=== PATIENT | male | born 1940 | race Caucasian/White ===

== ENCOUNTER 2016-07-03 23:38 | Inpatient (IN) | payer MEDICARE, MEDICAID ==
[~2016-07-03] VITALS: Ht 185.4 cm; Wt 83.4 kg
--- NOTE | 2016-07-04 00:32 | RADRPT ---
PROCEDURE: XR Chest. CLINICAL INDICATION: Sepsis TECHNIQUE: AP Portable chest. COMPARISON: No pertinent prior examinations were submitted for comparison. FINDINGS: The patient is rotated towards the right. There is mild to moderate cardiomegaly. There is mild pu lmonary vascular congestion. The osseous structures are unremarkable. IMPRESSION: Mild pulmonary vascular congestion. RPTAT: HIKT .Farooq Orta MD, MD Date Time Electronically viewed and signed by .Farooq Orta MD, on 07/04/2016 00:32 .T/
[2016-07-04 00:40] LABS: AADO2 Arterial 203.6 mmHg (7.0-24.0); Allen Test ACCEPTAB; Arterial Base Excess 3.1 mmol/L (-3.0-3); Arterial COHb 0 % (0.0-3.0); Arterial Fraction of Oxyhgb 98.1 % (93.0-99.0); Arterial HCO3 25.7 mmol/L (22.0-26.0); Arterial MetHb 0.3 % (0.0-1.5); MODE VENT-AC
[2016-07-04] MEDS ORDERED: ACETAMINOPHEN 650MG/20.3ML CUP NGT STA (00:55)
[2016-07-04 01:03] LABS: BASOPHILS % 0.2 % (0.0-2.0); EOSINOPHILS # 0.2 10^3/ul (0.0-0.5); EOSINOPHILS % 1.8 % (0.0-7.0); HEMATOCRIT 36.2 % (42.0-52.0); HEMOGLOBIN 12.5 g/dl (14.0-18.0); LYMPHOCYTES # 0.4 10^3/ul (0.8-2.9); LYMPHOCYTES % 3.4 % (15.0-51.0); MEAN CORPUSCULAR HEMOGLOBIN 32.9 pg (29.0-33.0); MEAN CORPUSCULAR HGB CONC 34.5 g/dl (32.0-37.0); MEAN CORPUSCULAR VOLUME 95.5 fl (82.0-101.0); MEAN PLATELET VOLUME 9.3 fl (7.4-10.4); MONOCYTE # 0.9 10^3/ul (0.3-0.9); MONOCYTES % 7.5 % (0.0-11.0); NEUTROPHIL # 10.8 10^3/ul (1.6-7.5); NEUTROPHILS % 87.1 % (39.0-77.0); PLATELET COUNT 208 10^3/UL (140-440); RED BLOOD COUNT 3.79 10^6/ul (4.70-6.10); RED CELL DISTRIBUTION WIDTH 13.1 % (11.5-14.5); UNCORRECTED WBC 12.4 10^3/ul (4.8-10.8); WHITE BLOOD COUNT 12.4 10^3/ul (4.8-10.8)
[2016-07-04 01:08] LABS: INR 1.62; PROTIME 19.4 Sec (12.2-14.2); PT RATIO 1.5
[2016-07-04 01:09] LABS: ALBUMIN 3.2 g/dl (3.3-4.9); PARTIAL THROMBOPLASTIN TIME 32.7 Sec (25.0-35.0); POTASSIUM 4.2 mmol/L (3.5-5.1)
[2016-07-04 01:11] LABS: CREATININE 0.71 mg/dl (0.61-1.24)
[2016-07-04 01:12] LABS: ALBUMIN/GLOBULIN RATIO 0.88; BILIRUBIN,INDIRECT 0.4 mg/dl (0-1.1); BILIRUBIN,TOTAL 0.4 mg/dl (0.2-1.3); CALCIUM 8.3 mg/dl (8.4-10.2); TOTAL PROTEIN 6.8 g/dl (6.1-8.1)
[2016-07-04 01:24] LABS: CONDITION 1; TROPONIN-I 0.025 ng/ml (0.00-0.12)
[2016-07-04 01:58] LABS: ADD UMIC YES; URINE BILIRUBIN (Dip) NEGATIVE (NEGATIVE); URINE BLOOD (Dip) 2+ (NEGATIVE); URINE COLOR DK. YELLOW (YELLOW); URINE GLUCOSE (Dip) NEGATIVE (NEGATIVE); URINE KETONES (Dip) NEGATIVE (NEGATIVE); URINE LEUKOCYTE ESTERASE (Dip) NEGATIVE (NEGATIVE); URINE NITRITE (Dip) NEGATIVE (NEGATIVE); URINE TOTAL PROTEIN (Dip) 2+ (NEGATIVE); URINE UROBILINOGEN (Dip) 1.0 E.U./dL (0.1-1.0)
--- NOTE | 2016-07-04 02:14 | ERA ---
ER Documentation Chief Complaint Date/Time DATE: 07/04/16 TIME: 02:13 Chief Complaint SNF staff unable to suction properly; SOB. HPI This is a 75-year-old male sent in by a [place] [facility] facility secondary to worsening shortness of breath on a tracheostomy patient. There were unable to suction the patient to comfort. Patient's history is limited secondary to baseline mental status and baseline medical condition. History is per EMS run sheet and [facility] transfer sheet. ROS All systems reviewed and are negative except as per history of present illness. Allergies Allergies: Coded Allergies: No Known Allergy (Unverified , 07/04/16) PMhx/Soc History of Surgery: Yes (G tube, tracheostomy) Anesthesia Reaction: No Hx Neurological Disorder: Yes (CVA with R hemiparesis) Hx Respiratory Disorders: Yes (respiratory failure; chronic trache to vent) Hx Cardiac Disorders: Yes (HTN, hyperlipids, AF) Hx Psychiatric Problems: No Hx Miscellaneous Medical Probl: Yes (dysphagia, G tube, UTI) Hx Alcohol Use: No Hx Substance Use: No Hx Tobacco Use: No Smoking Status: Former smoker Physical Exam Vitals Vital Signs Date Time Temp Pulse Resp B/P Pulse Ox O2 Delivery O2 Flow Rate FiO2 07/04/16 02:00 97.9 85 15 91/60 99 Mechanical Ventilator 07/04/16 01:00 86 15 98 50 07/04/16 00:40 101.7 83 23 101/62 07/03/16 23:45 99 24 98 50 Physical Exam Const: [] Head: Atraumatic Eyes: Normal Conjunctiva ENT: Normal External Ears, Nose and Mouth. Neck: Full range of motion..~ No meningismus. Resp: Clear to auscultation bilaterally Cardio: Regular rate and rhythm, no murmurs Abd: Soft, non tender, non distended. Normal bowel sounds Skin: No petechiae or rashes Back: No midline or flank tenderness Ext: No cyanosis, or edema Neur: Awake and alert Psych: Normal Mood and Affect Result Diagram: 07/04/16 0020 07/04/16 0020 Results 24 hrs Laboratory Tests Test 07/04/16 00:01 07/04/16 00:20 07/04/16 01:30 Arterial Blood HCO3 25.7mmol/L Arterial Blood Base Excess 3.1mmol/L Arterial Blood Oxygen Saturation 98.4mmHG Jasvir Test ACCEPTAB Arterial Blood Gas Puncture Site Left Radial Arterial Blood Carboxyhemoglobin 0% Arterial Blood Date Drawn 07/04/2016 12:35:00 AM Arterial Blood Methemoglobin 0.3% Arterial Blood pCO2 (Temp correct) 33.0mmhg Arterial Blood pH (Temp corrected) 7.510 Arterial Blood pO2 (Temp corrected) 115.8mmHG Blood Gas A-a O2 Differential 203.6mmHg Blood Gas Actual Respiration Rate 20 Blood Gas Inspiratory Pressure 38.0 Blood Gas Low PEEP Setting 5.0cmH2O Blood Gas Modality VENT-AC Blood Gas Notified Time 07/04/2016 12:40:28 AM Blood Gas Notified Whom JMD Blood Gas Respiration Rate 14.0 Blood Gas Specimen Source Blood arterial Blood Gas Temperature 37.0C Blood Gas Tidal Volume 550.0mL FiO2 50.0% Oxyhemoglobin Percent 98.1% Total Hemoglobin 13.0g/dl Activated Partial Thromboplast Time 32.7Sec Alanine Aminotransferase (ALT/SGPT) 28IU/L Albumin 3.2g/dl Albumin/Globulin Ratio 0.88 Alkaline Phosphatase 70IU/L Anion Gap 14 Aspartate Amino Transf (AST/SGOT) 19IU/L Basophils # 0.010^3/ul Basophils % 0.2% Blood Urea Nitrogen 23mg/dl Calcium Level 8.3mg/dl Carbon Dioxide Level 30mmol/L Chloride Level 95mmol/L Creatinine 0.71mg/dl Direct Bilirubin 0.00mg/dl Eosinophils # 0.210^3/ul Eosinophils % 1.8% Globulin 3.60g/dl Glucose Level 144mg/dl Hematocrit 36.2% Hemoglobin 12.5g/dl INR International Normalized Ratio 1.62 Indirect Bilirubin 0.4mg/dl Lactic Acid Level 1.2mmol/L Lymphocytes # 0.410^3/ul Lymphocytes % 3.4% Mean Corpuscular Hemoglobin 32.9pg Mean Corpuscular Hemoglobin Concent 34.5g/dl Mean Corpuscular Volume 95.5fl Mean Platelet Volume 9.3fl Monocytes # 0.910^3/ul Monocytes % 7.5% Neutrophils # 10.810^3/ul Neutrophils % 87.1% Nucleated Red Blood Cells # 0.010^3/ul Nucleated Red Blood Cells % 0.0/100WBC Platelet Count 53959^3/UL Potassium Level 4.2mmol/L Prothrombin Time 19.4Sec Prothrombin Time Ratio 1.5 Red Blood Count 3.7910^6/ul Red Cell Distribution Width 13.1% Sodium Level 135mmol/L Total Bilirubin 0.4mg/dl Total Protein 6.8g/dl Troponin I 0.025ng/ml White Blood Count 12.410^3/ul Urine Bilirubin NEGATIVE Urine Clarity SL HAZY Urine Color DK. YELLOW Urine Glucose NEGATIVE% Urine Hemoglobin 2+ Urine Ketones NEGATIVE Urine Leukocyte Esterase NEGATIVE Urine Microscopic RBC Pending Urine Microscopic WBC Pending Urine Nitrite NEGATIVE Urine Specific [place] >=1.030 Urine Total Protein 2+ Urine Urobilinogen 1.0 E.U./dL Urine pH 5.5 Current Medications Medications (Trade) Dose Ordered Sig/Thor Route PRN Reason Start Time Stop Time Status Last Admin Dose Admin Acetaminophen (Tylenol Liquid) 650 mg ONCE STAT NGT 07/04/16 00:55 07/04/16 00:56 DC 07/04/16 01:23 Procedures/MDM EKG: Rate/Rhythm: Normal Sinus Rhythm QRS, ST, T-waves: No changes consistent w/ acute ischemia Impression: No evidence of ischemia or arrhythmia Chest X-ray 1V Interpreted by me: Soft Tissue: No acute abnormalities Bones: No acute abnormalities Mediastinum/Cardiac Silhouette/Lungs: Increased interstitial fluid markings , pulmonary vascular congestion. Impression: CHF Patient's heart failure symptoms is concerning for acute decompensation and will require inpatient workup and monitoring. Further w/u for ischemia, arrhythmia, PE or dissection will be deferred to the inpatient team. Accepting Care Team: Current data and ongoing care discussed. Time: 2:30 AM Primary Provider: Hospitalist Consulting: [XOXOXO] Outstanding Data: none Departure Diagnosis: Primary Impression: Shortness of breath Additional Impressions: CHF (congestive heart failure) Qualified Code: I50.9 - Congestive heart failure, unspecified congestive heart failure chronicity, unspecified congestive heart failure type Tracheostomy dependent Condition: Serious OTIS BUNCH Jul 04, 2016 02:14
[2016-07-04 02:25] LABS: BACTERIA,URINE FEW; SQUAMOUS EPITHELIAL CELL,UR FEW
[2016-07-04 02:26] LABS: MUCUS,URINE FEW
[2016-07-04] MEDS ORDERED: CALC500T11 GTB (07:31)
[2016-07-04] MEDS ORDERED: ALBU2.5V3 NEB (07:31)
[2016-07-04] MEDS ORDERED: CHLO473M4 MM (07:32)
[2016-07-04] MEDS ORDERED: DOCU-144 GTB (07:32)
[2016-07-04] MEDS ORDERED: CARV12.598 GTB (07:33)
[2016-07-04] MEDS ORDERED: CRAN425C GTB (07:33)
[2016-07-04] MEDS ORDERED: DULR PR (07:34)
[2016-07-04] MEDS ORDERED: OMEG500C3 GTB (08:22)
[2016-07-04] MEDS ORDERED: FLEETOIL PR (08:23)
[2016-07-04] MEDS ORDERED: ATOR10TA65 GTB (08:38)
[2016-07-04] MEDS ORDERED: MAGN400O4 GTB (08:39)
[2016-07-04] MEDS ORDERED: MAGN400T28 GTB (08:39)
[2016-07-04] MEDS ORDERED: AMLO5TAB4 GTB (08:40)
[2016-07-04] MEDS ORDERED: FAMO-18 GTB (08:40)
[2016-07-04] MEDS ORDERED: SCOP1PAT TD (08:41)
[2016-07-04] MEDS ORDERED: ACET325T45 GTB (08:42)
[2016-07-04] MEDS ORDERED: RIVA20TA GTB (08:43)
[2016-07-04 10:52] VITALS: TEMP 98.3
[2016-07-04] MEDS ORDERED: ALBUTEROL 0.083% (NEB) 2.5 MG/3 ML AMP NEB PRN (13:30)
[2016-07-04] MEDS ORDERED: MINERAL OIL 133 ML ENEMA PR PRN (13:30)
[2016-07-04] MEDS ORDERED: BISACODYL 10 MG SUPP PR PRN (13:30)
[2016-07-04] MEDS ORDERED: FUROSEMIDE 20 MG INJ IV ONE (13:30)
[2016-07-04] MEDS: LEVOFLOXACIN 500MG/D5W (PMX) 100 ML IVPB SCH (13:50)
--- NOTE | 2016-07-04 15:03 | CONS ---
DATE OF ADMISSION: 07/03/2016 DATE OF CONSULTATION: 07/04/2016 CARDIAC CONSULTATION REASON FOR CONSULTATION: Atrial fibrillation. REQUESTING PHYSICIAN: Dr. Landers from the hospitalist service. HISTORY OF PRESENT ILLNESS: Mr. Collado is a 75-year-old male with a history of chronic resp iratory failure status post tracheostomy and dysphagia status post G-tube, atrial fibrillation on Xa relto, CVA with left-sided MCA, stroke and subsequent hemiplegia, aphasia who presented from chronic care facility with worsening respiratory status use of accessory muscles. Upon arrival, temperatur e of 101.7, blood pressure 101/62, pulse 83, respiratory rate 23, saturating 98%, FiO2 of 50%. The patient's labs with an INR of 1.62, sodium 135, potassium 4.2, creatinine 0.7, BUN 23, AST 19, ALT 2 8. Troponin negative. White blood cell count 12.4, hemoglobin 12.5, platelet count of 208. ABG re vealing a pH of 7.510, a pO2 of 115, a pCO2 of 33, UA borderline. The patient's chest x-ray reveale d mild pulmonary vascular congestion. The patient's electrocardiogram revealed a rhythm most consis tent with atrial fibrillation, rate of 97, right axis deviation, poor R-wave progression across the leads with a concern for possible anterior anterolateral DE with intraventricular conduction d elay and secondary repolarization abnormalities. The patient has been treated with Tylenol for feve r and now awaits admit to the floor. PAST MEDICAL HISTORY: As above in HPI. MEDICATIONS CURRENTLY IN HOSPITAL: 1. Norvasc 5 mg daily. 2. Mag oxide. 3. Scopolamine patch. 4. Lipitor 2.5 mg at bedtime. 5. Calcium carbonate. 6. Carvedilol 12.5 mg p.o. b.i.d. 7. Peridex. 8. Colace 100 mg at bedtime. 9. Xarelto 20 mg daily. 10. Tylenol p.r.n. 11. Albuterol p.r.n. 12. Mineral oil p.r.n. 13. Levofloxacin p.r.n. ALLERGIES: PENICILLIN. SOCIAL HISTORY: No tobacco, ETOH, or illicit drug use. FAMILY HISTORY: No history of sudden cardiac or early CAD. REVIEW OF SYSTEMS: As above in HPI. CONSTITUTIONAL: No fevers, chills. Positive fevers. PULMONARY: Respiratory failure, chronic, status post tracheostomy. GASTROINTESTINAL: Dysphagia, status post G-tube. GENITOURINARY: No hematuria. MUSCULOSKELETAL: Degenerative joint disease. PSYCHIATRIC: No documented psych history. NEUROLOGIC: History of cerebrovascular accident with hemiplegia and aphasia. PHYSICAL EXAMINATION: VITAL SIGNS: Temperature of 97.9, blood pressure most recently 116/76, pulse 75, respiratory rate 1 5, saturating 99%, FIO2 50%. GENERAL: The patient is sleeping, arousable, appears confused, encephalopathic. NECK: Tracheostomy in place. CHEST: Upper airway transmitted rhonchorous sounds. HEART: Irregularly irregular 1/6 systolic murmur, nondisplaced PMI. ABDOMEN: Positive bowel sounds, soft, positive G-tube. EXTREMITIES: Trace edema, 1+ pulses bilaterally, posterior tibial. LABORATORY DATA: As above in HPI. No further labs for my review at this time. IMAGING STUDIES: As above in HPI. No further imaging studies for my review at this time. ECG: As above in HPI. No further electrocardiograms for my review at this time. IMPRESSION: 1. Atrial fibrillation, currently rate controlled on Xarelto. 2. Congestive heart failure by chest x-ray, question systolic versus diastolic, but acute given her presentation. 3. Hypotension now improved currently. 4. Abnormal electrocardiogram, assess for acute coronary syndrome. 5. Respiratory failure, chronic, status post trach. 6. Dysphagia, status post G-tube. 7. Cough assess for upper respiratory infection. 8. Fevers. 9. Coagulopathy secondary to Xarelto. 10. Mild anemia. RECOMMENDATIONS: 1. At this time, would admit patient to telemetry monitoring to follow rhythm and rate control clos ayesha. 2. Continue the patient's current carvedilol for control of blood pressure and Norvasc. 3. Continue the patient's Xarelto for prevention of thromboembolic complications in the setting of atrial fibrillation, prior cerebrovascular accident. 4. Continue the patient's antibiotics and follow up all culture data. 5. Continue the patient's statin and adjust it according to a fasting lipid panel that is to be jordyn cked. 6. Check a 2-D echo to further assess patient's ejection fraction, wall motion, rule any major valv e abnormalities, and will complete a rule out for myocardial infarction to ensure the patient's EKG abnormalities are chronic in nature and not due to any recent acute coronary syndromes. Thank you for allowing me to take part in the care of this patient. I will continue to follow very closely with you with further recommendations to be made as the patient progresses through his [facility] clinical course. Dictated By: GERARDO STANLEY/MARLY Conf#: [id number] DID#: [id number] CC: ELISEO CHUN MD;*End*
--- NOTE | 2016-07-04 16:07 | HP ---
DATE OF ADMISSION: 07/03/2016 CHIEF COMPLAINT: Respiratory failure, fever. HISTORY OF PRESENT ILLNESS: This is a 75-year-old male well known to me with a past medical history of CVA with right-sided hemiparesis, history of dementia, history of hypertension, history of hyper lipidemia, history of chronic atrial fibrillation, history of dysphagia status post PEG who presents to [facility] with shortness of breath and fever. The patient has been a chronic resident of [facility] for over 2 years. The patient, during that time, has been stable on t edelmira mask. The patient was in his normal state of health until late yesterday when the patient star adilene to have shortness of breath, tachypnea. The patient, at his skilled nurse facility, underwent a ggressive suctioning without any significant improvement. As a result of worsening shortness of karlee ath, the patient was transferred to the [facility] Emergency Room for evaluation. On admission, the patient was noted to be hypotensive with systolic pressures in the 90s as well as febrile with a temperature of 101.7. In the emergency room, the patient was given Tylenol and was g iven IV hydration. The patient's laboratory data drawn showed elevated white count of 12,000. The patient had a chest x-ray which showed pulmonary congestion. The patient was placed on the vent and has since been clinically stable. There have been no reports of hemoptysis, hematemesis, or hemato chezia. PAST MEDICAL HISTORY: As stated above, history of chronic respiratory failure, history of a CVA wit h right-sided hemiparesis, history of dementia, history of hypertension, dyslipidemia, AFib, history of UTI, and history of debility. PAST SURGICAL HISTORY: Status post trach, status post PEG. ALLERGIES: THE PATIENT IS ALLERGIC TO PENICILLIN. FAMILY HISTORY: No family history of kidney disease or heart disease. MEDICATIONS: The patient's medications have been reviewed and reconciled. SOCIAL HISTORY: Lives at skilled nurse facility. REVIEW OF SYSTEMS: A 14-point review of systems was conducted. Pertinent positives stated in HPI, otherwise negative. Please note review of systems was obtained by speaking to his at bedside a nd reviewing medical records. PHYSICAL EXAMINATION: VITAL SIGNS: Blood pressure is 116/76, respirations 15, pulse 75, temperature 98.3. HEENT: Head is normocephalic. Pupils are reactive to light. NECK: Shows trach. HEART: Irregularly irregular. LUNGS: Show diminished breath sounds at base. Positive rhonchi. ABDOMEN: Soft, nontender to palpation, no rebound or guarding. Positive PEG. EXTREMITIES: Negative for clubbing, cyanosis, no edema. DERMATOLOGIC: No rashes. MUSCULOSKELETAL: No joint effusions. No obvious wounds. NEUROLOGIC: Limited exam. The patient has right-sided weakness. LABORATORY DATA: Shows a sodium 135, potassium 4.2, chloride 95, BUN 23, creatinine 0.71. Lactic a gely 1.8. White count 12.4, hemoglobin 12.5, hematocrit 36.2, platelet count is 208. Chest x-ray sh ows vascular pulmonary congestion. ASSESSMENT AND PLAN: This is a 75-year-old male who presents with 1. Acute hypoxemic respiratory failure. Etiology is secondary to possible bronchitis, CHF exacerba tion? The patient was placed back on the vent. Vent settings have been reviewed. Plan at this poi nt is to continue medical management. We will start the patient on empiric Levaquin for possible br onchitis. We will continue nebulizer therapy. We will continue current vent settings. We will guillermina ce a pulmonary consult with Dr. Pulido for evaluation and monitor. 2. Fever, systemic inflammatory response syndrome, possible acute bronchitis. The patient was note d to have elevated white count, to be febrile, and to have a productive cough. Plan at this point i s to start the patient on Levaquin 500 mg IV daily. We will check blood cultures and procalcitonin level, check a urine culture. We will check sputum cultures. We will follow up with Infectious Dis ease, Dr. Varghese, for any further evaluations and monitor. 3. Chronic atrial fibrillation. The patient is currently rate controlled. We will continue medica l management. Continue Coreg, continue Xarelto. Cardiology consult was placed. We will follow up with recommendations. 4. Acute encephalopathy and chronic dementia. Etiology is likely toxic metabolic. We will treat u nderlying infection as stated above. Continue to monitor vital signs closely. If there is any sign ificant change, we will get a CT scan of the head. 5. Dysphagia status post percutaneous endoscopic gastrostomy. The patient will be resumed on tube feeding. 6. Cerebrovascular accident with right-sided hemiparesis. We will continue current medical managem ent. Continue statin therapy. Continue Xarelto. Continue low-dose aspirin. 7. Dyslipidemia. Continue fish oil, statin therapy. 8. Hypertension. The patient is now hypotensive. We will place parameters on blood pressure medic ations. The patient is status post IV fluids and monitor. 9. Possible congestive heart failure exacerbation. The patient's chest x-ray shows pulmonary vascu lar congestion. We will continue to monitor closely. Follow up with Cardiology for recommendations . 10. Anemia, likely of chronic disease. Monitor hemoglobin levels. 11. Gastrointestinal and deep venous thrombosis prophylaxis. Continue proton pump inhibitor and Xa relto. Please note I spent over 30 minutes of face to face with the patient and patient's at bedside d iscussing code status. The patient is a FULL CODE. Dictated By: RACHEAL BELTRÁN/MARLY Conf#: [id number] DID#: [id number]
--- NOTE | 2016-07-04 17:42 | CONS ---
DATE OF ADMISSION: 07/03/2016 DATE OF CONSULTATION: 07/04/2016 TYPE OF CONSULTATION: Infectious Disease. REASON FOR CONSULTATION: Antibiotic management. HISTORY OF PRESENT ILLNESS: The patient is a 75-year-old male who comes in with respiratory failure and fever. His past problems include: 1. History of CVA with right-sided hemiparesis. 2. History of dementia. 3. Hypertension. 4. Hyperlipidemia. 5. Chronic atrial fibrillation. 6. Dysphagia, status post G-tube placement. The patient presents to [facility] with shortness of breath and fever. He is a chronic res ident [facility] for over 2 years. The patient has been stable on a trach mask. He was st able until late afternoon yesterday, when he began to develop shortness of breath and tachypnea. He underwent aggressive suctioning without any significant improvement. He developed worsening shortn ess of breath and was transferred to [facility] for evaluation. He was hypotensive with a blood pressure in the 90s as well as temperature of 101.7. His white count was 12.4, H and H of 12. 5 and 36.2, platelet count 208,000. BUN and creatinine were 23 over 0.7. Bilirubin 0.4, AST 19, AL T 28. Chest x-ray showed mild to moderate cardiomegaly, mild pulmonary vascular congestion. The pa tient is status post trach, status post G-tube. HE IS ALSO ALLERGIC TO PENICILLIN. FAMILY HISTORY: Noncontributory. SOCIAL HISTORY: He lives in a long-term facility. HABITS: He does not smoke, drink or abuse drugs at this point. MEDICATIONS: Per chart. REVIEW OF SYSTEMS: Noncontributory. PHYSICAL EXAMINATION: GENERAL: The patient is an elderly-appearing 75-year-old male who is confused, demented, in no acut e distress. VITAL SIGNS: Stable. SKIN: Without general rash. HEENT: Within normal limits. NECK: With tracheostomy. HEART: Irregularly irregular rhythm. CHEST: Decreased breath sounds at the bases with scattered rhonchi. ABDOMEN: Soft, nontender without organosplenomegaly or masses. He has a G-tube. EXTREMITIES: Without cyanosis, clubbing or edema. RECTAL AND GENITAL: Deferred. NEUROLOGIC: The patient has right-sided weakness secondary to previous stroke. IMPRESSION AND PLAN: The patient has acute hypoxemic respiratory failure possibly related to bronch itis or congestive heart failure. He was started on empiric Levaquin. Will do blood cultures and u rine. A procalcitonin level was ordered. He has acute on chronic encephalopathy and dementia. I w ill dictate my findings to Dr. Lal and to Dr. Whitlock. Dictated By: ADAN CHOWDHURY MD, JD/MARLY Conf#: [id number] DID#: [id number]
[2016-07-04] MEDS: RIVAROXABAN 20 MG TABLET GTB SCH (18:00)
[2016-07-04 18:13] LABS: CREATINE KINASE 60 IU/L (23-200)
[2016-07-04 18:24] LABS: CK-MB 0.51 ng/ml (0.0-2.4)
[2016-07-04 18:27] LABS: TROPONIN-I < 0.012 ng/ml (0.00-0.12)
--- NOTE | 2016-07-04 20:30 | QN ---
Documentation Comment Observation Note: Time: 4 hours Family Hx: Negative for coronary disease Evaluation: Multiple exams showed improving symptoms and no evidence of clinical decompensation. KELL CONNELL MD Jul 04, 2016 20:30
[2016-07-04] MEDS: CHLORHEXIDINE GLUCONATE 15 ML UD CUP MM SCH (21:00)
[2016-07-04] MEDS ORDERED: CALCIUM CARBONATE 1.25 GM TAB GTB SCH (21:00)
[2016-07-04 22:00] VITALS: BP 124/67; PULSE 87; RESP 14; Ht 185.4 cm; Wt 83.4 kg
[2016-07-04 22:43] VITALS: RESP 18
[2016-07-04] MEDS: ATORVASTATIN 10 MG TAB GTB SCH (23:12)
[2016-07-04] MEDS: DOCUSATE SODIUM 100 MG CAP PO SCH (23:13)
[2016-07-04] MEDS: ACETAMINOPHEN 650MG/20.3ML CUP GTB PRN (23:13)
[2016-07-04] MEDS: FAMOTIDINE 20 MG TAB GTB SCH (23:13)
[2016-07-05] VITALS (24 sets, daily range): BP systolic 96–138; BP diastolic 48–74; PULSE 73–84; RESP 14–21
[2016-07-05 01:51] LABS: CREATINE KINASE 45 IU/L (23-200)
[2016-07-05 02:07] LABS: CK-MB < 0.22 ng/ml (0.0-2.4); TROPONIN-I 0.028 ng/ml (0.00-0.12)
[2016-07-05] MEDS ORDERED: VANCOMYCIN 1 GM in NS 250 ML IVPB SCH (06:00)
[2016-07-05 06:23] LABS: BASOPHILS % 0.2 % (0.0-2.0); EOSINOPHILS % 0.2 % (0.0-7.0); HEMOGLOBIN 12.2 g/dl (14.0-18.0); LYMPHOCYTES # 1.4 10^3/ul (0.8-2.9); LYMPHOCYTES % 12.4 % (15.0-51.0); MEAN CORPUSCULAR HEMOGLOBIN 33.5 pg (29.0-33.0); MEAN CORPUSCULAR HGB CONC 34.8 g/dl (32.0-37.0); MEAN CORPUSCULAR VOLUME 96.2 fl (82.0-101.0); MEAN PLATELET VOLUME 8.7 fl (7.4-10.4); MONOCYTE # 1.7 10^3/ul (0.3-0.9); MONOCYTES % 15.3 % (0.0-11.0); NEUTROPHIL # 8.1 10^3/ul (1.6-7.5); NEUTROPHILS % 71.9 % (39.0-77.0); PLATELET COUNT 202 10^3/UL (140-440); RED BLOOD COUNT 3.64 10^6/ul (4.70-6.10); RED CELL DISTRIBUTION WIDTH 12.6 % (11.5-14.5); UNCORRECTED WBC 11.3 10^3/ul (4.8-10.8); WHITE BLOOD COUNT 11.3 10^3/ul (4.8-10.8)
[2016-07-05 06:35] LABS: POTASSIUM 3.8 mmol/L (3.5-5.1)
[2016-07-05 06:37] LABS: CREATININE 0.84 mg/dl (0.61-1.24)
[2016-07-05 06:38] LABS: CALCIUM 8.1 mg/dl (8.4-10.2)
[2016-07-05 06:39] LABS: MAGNESIUM 2.3 mg/dl (1.7-2.5)
[2016-07-05 07:09] LABS: CONDITION 1; LH ANALYZER COMMENTS 1
[2016-07-05 09:09] LABS: CHOL/HDL RATIO 4.5 RATIO
--- NOTE | 2016-07-05 10:18 | PN ---
DATE: 07/05/2016 SUBJECTIVE: The patient was noted to be febrile with temperature as high as 102. The patient contin ues to have thick productive secretions. The patient also noted to be more lethargic this morning, less responsive. No other events noted. OBJECTIVE: VITAL SIGNS: Blood pressure 123/55, respiration 18, pulse 73, temperature 98.6. HEENT: Head is normocephalic. NECK: Shows trach. HEART: Regular rate. LUNGS: Show diminished breath sounds at the base. ABDOMEN: Soft, nontender to palpation. No rebound or guarding. EXTREMITIES: Negative for clubbing, cyanosis, no edema. DERMATOLOGIC: No rashes. NEUROLOGIC: Diffuse weakness and limited exam due to lack of patient cooperation. DERMATOLOGIC: No rashes. MUSCULOSKELETAL: As stated above. No joint effusions. LABORATORY DATA: Shows sodium 139, potassium 3.9, chloride 98, BUN 30, calcium 8.1. White count 11 .3, hemoglobin 10.2, hematocrit 35.0, platelet count is 202. ASSESSMENT AND PLAN: 1. Acute hypoxemic respiratory failure, etiology secondary to bronchitis, possible evolving pneumon ia, questionable congestive heart failure exacerbation. The patient is currently on ventilatory sup port. Vent settings have been reviewed. ABG has been reviewed. We will continue current settings. Continue nebulized therapy, continue IV antibiotics. We will follow up with cotton bag sewer, Dr. Betina beckett for evaluation. 2. Sepsis, etiology secondary to bronchitis, possible evolving pneumonia. The patient remains afeb rile. The patient's blood cultures were negative, influenza was negative. At this point, continue current IV antibiotics with Levaquin. Will follow up procalcitonin level, follow up with infectious disease for recommendations. 3. Chronic atrial fibrillation, currently rate controlled. Continue current medical management, co ntinue Coreg and Xarelto. 4. Acute diastolic heart failure. The patient appears near euvolemic. We will continue current ut dical management. Cardiology is following. Follow up 2D echo. 5. Acute encephalopathy on chronic dementia, etiology is toxic metabolic. The patient, however, do es seem more lethargic today. Will get a CT scan of the head to rule out acute cerebrovascular acci dent. 6. Dysphagia. Status post PEG tube, tube feeding. 7. History of cerebrovascular accident . Continue medical management. 8. Dyslipidemia. Continue statin therapy, fish oil. 9. History of hypertension. The patient is currently normotensive. Continue to monitor. 10. Anemia of chronic disease. Continue to monitor H and H levels. 11. Gastrointestinal and deep venous thrombosis prophylaxis. Continue proton pump inhibitor and Xa relto. Dictated By: RACHEAL BELTRÁN/MARLY Conf#: [id number] DID#: [id number]
[2016-07-05] MEDS: SCOPOLAMINE 1.5 MG PATCH TRANSDERM SCH (10:37)
[2016-07-05] MEDS: AMLODIPINE 5 MG TAB GTB SCH (10:41)
[2016-07-05] MEDS: MAGNESIUM HYDROXIDE 30ML CUP GTB SCH (10:42)
[2016-07-05] MEDS: MAGNESIUM OXIDE 400 MG TAB GTB SCH (10:42)
[2016-07-05] MEDS: CHLORHEXIDINE GLUCONATE 15 ML UD CUP MM SCH ×2 (10:43→20:35)
--- NOTE | 2016-07-05 12:47 | CONS ---
Date/Time of Note Date/Time of Note DATE: 07/05/16 TIME: 12:41 Assessment/Plan Assessment/Plan Additional Assessment/Plan Chest x-ray was reviewed from yesterday which was a left lower lobe infiltrate. Assessment and recommendations; 1. Patient admitted with what appears to be left lower lobe pneumonia. Next 2. Episode of hypotension with interval improvement. Next 3. Patient currently maintained on: assist control of 12, tidal volume 500, PPEP of 5, 50% FiO2. Next 4. Other stable comorbidities as outlined above. Next Continue current treatment. Wean down FiO2 to keep O2 sat around 92-94%. Consultation Date/Type/Reason Admit Date/Time Jul 04, 2016 at 22:28 Date of Consultation: Jul 05, 2016 Type of Consultation: Pulmonary/critical care Reason for Consultation Patient is a 75-year-old male who was admitted yesterday transferred from retirement with complaints of fever increasing shortness of breath. Upon evaluation of chest x-ray was done which is showing left lower lobe pneumonia. History was obtained from medical record as the patient, because of underlying severe CVA is noncommunicative. By the time I saw the patient the patient is awake on mechanical ventilation via tracheostomy and currently in no distress. Patient also was hypotensive on admission. Past medical history #1. Hypertension #2 atrial fibrillation #3 CVA #4 dementia #5 status post tracheostomy and PEG tube placement Medications; were reviewed. Allergies; penicillin. Next Family history; noncontributory Social history; noncontributory .patient resides in a retirement. Occupational history; currently not available. Review of systems; not able to be obtained. Next General examination; elderly male, awake, in no distress. Noncommunicative. Social History Smoking Status: Former smoker Exam/Review of Systems Vital Signs Vitals Vital Signs Date Time Temp Pulse Resp B/P Pulse Ox O2 Delivery O2 Flow Rate FiO2 07/05/16 11:46 99.0 79 18 134/62 96 07/05/16 08:35 50 07/05/16 00:00 Mechanical Ventilator Intake and Output 07/04/16 07/04/16 07/05/16 15:00 23:00 07:00 Output Total 700 ml Balance -700 ml Exam H EENT examination; supple neck. No lymphadenopathy. No JVD. Tracheostomy in place. Pupils are midsize reactive to light. He does have multiple carious teeth. Chest examination; diminished but clear breath sounds. S1-S2 audible. Irregular rhythm. Abdomen examination; soft, nondistended. No organomegaly. PEG tube in place. Bowel sounds audible. Extremity examination; no peripheral edema. Pulses 1+ bilaterally. RAILS DEVELOPER examination; Patient moves right upper extremity to some extent. Results Result Diagram: 07/05/16 0555 07/05/16 0555 Results 24 hrs Laboratory Tests Test 07/04/16 17:45 07/05/16 01:10 07/05/16 05:55 Creatine Kinase 60 45 Creatine Kinase Index 0.9 0.5 Creatinine Kinase MB (Mass) 0.51 < 0.22 Troponin I < 0.012 0.028 Anion Gap 14 Basophils # 0.0 Basophils % 0.2 Blood Urea Nitrogen 30 H Calcium Level 8.1 L Carbon Dioxide Level 31 Chloride Level 98 Cholesterol Level 81 L Cholesterol/HDL Ratio 4.5 Creatinine 0.84 Eosinophils # 0.0 Eosinophils % 0.2 Glucose Level 114 HDL Cholesterol 18 L Hematocrit 35.0 L Hemoglobin 12.2 L LDL Cholesterol, Calculated 44 Lymphocytes # 1.4 Lymphocytes % 12.4 L Magnesium Level 2.3 Mean Corpuscular Hemoglobin 33.5 H Mean Corpuscular Hemoglobin Concent 34.8 Mean Corpuscular Volume 96.2 Mean Platelet Volume 8.7 Monocytes # 1.7 H Monocytes % 15.3 H Neutrophils # 8.1 H Neutrophils % 71.9 Nucleated Red Blood Cells # 0.0 Nucleated Red Blood Cells % 0.0 Phosphorus Level 3.0 Platelet Count 202 Potassium Level 3.8 Red Blood Count 3.64 L Red Cell Distribution Width 12.6 Sodium Level 139 Triglycerides Level 95 White Blood Count 11.3 H Medications Medications Current Medications Acetaminophen (Tylenol Liquid) 650 mg Q4H PRN GTB PAIN AND OR ELEVATED TEMP Last administered on 07/04/16 23:13; Admin Dose 650 MG; Start 07/04/16 at 13:30 Amlodipine Besylate (Norvasc) 5 mg DAILY GTB Last administered on 07/05/16 10: 41; Admin Dose 5 MG; Start 07/05/16 at 09:00 Atorvastatin Calcium (Lipitor) 2.5 mg QHS GTB Last administered on 07/04/16 23: 12; Admin Dose 2.5 MG; Start 07/04/16 at 21:00 Bisacodyl (Dulcolax Supp) 10 mg Q24H PRN [place] CONSTIPATION; Start 07/04/16 at 13: 30 Carvedilol (Coreg) 12.5 mg BID GTB Last administered on 07/05/16 10:42; Admin Dose 12.5 MG; Start 07/04/16 at 21:00 Chlorhexidine Gluconate (Peridex) 15 ml Q12 MM Last administered on 07/05/16 10 :43; Admin Dose 15 ML; Start 07/04/16 at 21:00 Docusate Sodium (Colace) 100 mg QHS PO Last administered on 07/04/16 23:13; Admin Dose 100 MG; Start 07/04/16 at 21:00 Famotidine (Pepcid) 20 mg QHS GTB Last administered on 07/04/16 23:13; Admin Dose 20 MG; Start 07/04/16 at 21:00 Magnesium Hydroxide (Milk Of Mag) 30 ml DAILY GTB Last administered on 10:42; Admin Dose 30 ML; Start 07/05/16 at 09:00 Magnesium Oxide (Mag-Ox 400) 200 mg DAILY GTB Last administered on 07/05/16 10: 42; Admin Dose 200 MG; Start 07/05/16 at 09:00 Mineral Oil (Fleet Mineral Oil Enema) 133 ml DAILY PRN [place] CONSTIPATION; Start 07/04/16 at 13:30 Scopolamine 1 patch 1 patch DAILY TRANSDERM Last administered on 07/05/16 10:37 ; Admin Dose 1 PATCH; Start 07/05/16 at 09:00 Levofloxacin/ Dextrose (Levaquin 500mg/ D5W 100 ml (Pmx)) 100 ml @ 100 mls/hr Q24H IVPB Last administered on 07/04/16 13:50; Admin Dose 100 MLS/HR; Start 07/04/16 at 13:30 Influenza Virus Vaccine (Fluzone) 0.5 ml ONCE ONCE IM* ; Start 07/07/16 at 09:00 ; Stop 07/07/16 at 09:01 Calcium Carbonate (Oyster Shell Calcium) 1.25 gm BID GTB ; Start 07/05/16 at 12: 30 RADHA DUBOIS Jul 05, 2016 12:47
--- NOTE | 2016-07-05 12:53 | RADRPT ---
PROCEDURE: XR Chest. CLINICAL INDICATION: Shortness of breath. TECHNIQUE: Single frontal view. COMPARISON: 07/04/2016. FINDINGS: There is a tracheostomy tube. The patient is rotated to the right. The heart is enlarged. There i s mild pulmonary edema. There is right basilar air space disease consistent with atelectasis or pneumonia. The lungs are ot herwise clear. There is no pleural effusion. There is no pneumothorax. IMPRESSION: 1. Right basilar atelectasis or pneumonia. 2. No other change from 07/04/2016. RPTAT: QQ .Kenton Castro MD, MD Date Time Electronically viewed and signed by .Kenton Castro MD, MD on 07/05/2016 12:52 .R/
--- NOTE | 2016-07-05 13:09 | CONS ---
Date/Time of Note Date/Time of Note DATE: 07/05/16 TIME: 13:04 Assessment/Plan Assessment/Plan Chief Complaint/Hosp Course IMPRESSION: 1. Atrial fibrillation, currently rate controlled on Xarelto. 2. Congestive heart failure by chest x-ray, question systolic versus diastolic , but acute given her presentation. 3. Hypotension now improved currently. 4. Abnormal electrocardiogram, assess for acute coronary syndrome.-neg x 3 troponin 5. Respiratory failure, chronic, status post trach. 6. Dysphagia, status post G-tube. 7. Cough assess for upper respiratory infection. 8. Fevers. 9. Coagulopathy secondary to Xarelto. 10. Mild anemia. Recc: -Tele -serial ecg's -Continue coreg/norvasc -Continue statin -Contieu xarelto -Will f/u echo -Follow volume status -Contineu abx's and f/u cx data Problems: Consultation Date/Type/Reason Admit Date/Time Jul 04, 2016 at 22:28 Initial Consult Date 07/05/16 Type of Consultation: Cardiology Reason for Consultation AF/CHF Referring Provider: OTIS OCHOA MD Exam/Review of Systems Vital Signs Vitals Vital Signs Date Time Temp Pulse Resp B/P Pulse Ox O2 Delivery O2 Flow Rate FiO2 07/05/16 11:46 99.0 79 18 134/62 96 07/05/16 08:35 50 07/05/16 00:00 Mechanical Ventilator Intake and Output 07/04/16 07/04/16 07/05/16 15:00 23:00 07:00 Output Total 700 ml Balance -700 ml Exam Review of Systems: CONSTITUTIONAL: No fevers, chills. PULMONARY: trached CARDIOVASCULAR: No chest pain/palpitations GASTROINTESTINAL: No nausea/vomiting. GENITOURINARY: No hematuria/dysuria. MUSCULOSKELETAL: No myagias/arthalgias. PSYCHIATRIC: The patient denies depression. NEUROLOGIC: No weakness Constitutional: alert Psych: no complaints Head: normocephalic ENMT: mucosa pink and moist Neck: other (trached) Respiratory: other (upper airway rhochi) Cardiovascular: irregular rhythm Gastrointestinal: non-tender, soft Musculoskeletal: muscle tone (normal) Extremities: edema (trace/B) Neurological: other Results Result Diagram: 07/05/16 0555 07/05/16 0555 Results 24 hrs Laboratory Tests Test 07/04/16 17:45 2/2/17 01:10 07/05/16 05:55 Creatine Kinase 60 45 Creatine Kinase Index 0.9 0.5 Creatinine Kinase MB (Mass) 0.51 < 0.22 Troponin I < 0.012 0.028 Anion Gap 14 Basophils # 0.0 Basophils % 0.2 Blood Urea Nitrogen 30 H Calcium Level 8.1 L Carbon Dioxide Level 31 Chloride Level 98 Cholesterol Level 81 L Cholesterol/HDL Ratio 4.5 Creatinine 0.84 Eosinophils # 0.0 Eosinophils % 0.2 Glucose Level 114 HDL Cholesterol 18 L Hematocrit 35.0 L Hemoglobin 12.2 L LDL Cholesterol, Calculated 44 Lymphocytes # 1.4 Lymphocytes % 12.4 L Magnesium Level 2.3 Mean Corpuscular Hemoglobin 33.5 H Mean Corpuscular Hemoglobin Concent 34.8 Mean Corpuscular Volume 96.2 Mean Platelet Volume 8.7 Monocytes # 1.7 H Monocytes % 15.3 H Neutrophils # 8.1 H Neutrophils % 71.9 Nucleated Red Blood Cells # 0.0 Nucleated Red Blood Cells % 0.0 Phosphorus Level 3.0 Platelet Count 202 Potassium Level 3.8 Red Blood Count 3.64 L Red Cell Distribution Width 12.6 Sodium Level 139 Triglycerides Level 95 White Blood Count 11.3 H Medications Medications Current Medications Acetaminophen (Tylenol Liquid) 650 mg Q4H PRN GTB PAIN AND OR ELEVATED TEMP Last administered on 07/04/16 23:13; Admin Dose 650 MG; Start 07/04/16 at 13:30 Amlodipine Besylate (Norvasc) 5 mg DAILY GTB Last administered on 07/05/16 10: 41; Admin Dose 5 MG; Start 07/05/16 at 09:00 Atorvastatin Calcium (Lipitor) 2.5 mg QHS GTB Last administered on 07/04/16 23: 12; Admin Dose 2.5 MG; Start 07/04/16 at 21:00 Bisacodyl (Dulcolax Supp) 10 mg Q24H PRN [place] CONSTIPATION; Start 07/04/16 at 13: 30 Carvedilol (Coreg) 12.5 mg BID GTB Last administered on 07/05/16 10:42; Admin Dose 12.5 MG; Start 07/04/16 at 21:00 Chlorhexidine Gluconate (Peridex) 15 ml Q12 MM Last administered on 07/05/16 10 :43; Admin Dose 15 ML; Start 07/04/16 at 21:00 Docusate Sodium (Colace) 100 mg QHS PO Last administered on 07/04/16 23:13; Admin Dose 100 MG; Start 07/04/16 at 21:00 Famotidine (Pepcid) 20 mg QHS GTB Last administered on 07/04/16 23:13; Admin Dose 20 MG; Start 07/04/16 at 21:00 Magnesium Hydroxide (Milk Of Mag) 30 ml DAILY GTB Last administered on 10:42; Admin Dose 30 ML; Start 07/05/16 at 09:00 Magnesium Oxide (Mag-Ox 400) 200 mg DAILY GTB Last administered on 07/05/16 10: 42; Admin Dose 200 MG; Start 07/05/16 at 09:00 Mineral Oil (Fleet Mineral Oil Enema) 133 ml DAILY PRN [place] CONSTIPATION; Start 07/04/16 at 13:30 Scopolamine 1 patch 1 patch DAILY TRANSDERM Last administered on 07/05/16 10:37 ; Admin Dose 1 PATCH; Start 07/05/16 at 09:00 Levofloxacin/ Dextrose (Levaquin 500mg/ D5W 100 ml (Pmx)) 100 ml @ 100 mls/hr Q24H IVPB Last administered on 07/04/16 13:50; Admin Dose 100 MLS/HR; Start 07/04/16 at 13:30 Influenza Virus Vaccine (Fluzone) 0.5 ml ONCE ONCE IM* ; Start 07/07/16 at 09:00 ; Stop 07/07/16 at 09:01 Calcium Carbonate (Oyster Shell Calcium) 1.25 gm BID GTB ; Start 07/05/16 at 12: 30 GERARDO SARAVIA Jul 05, 2016 13:09
[2016-07-05] MEDS: LEVOFLOXACIN 500MG/D5W (PMX) 100 ML IVPB SCH (14:47)
[2016-07-05] MEDS: CALCIUM CARBONATE 1.25 GM TAB GTB SCH ×2 (14:47→20:34)
[2016-07-05] MEDS ORDERED: VANCOMYCIN IV PER PHARMACY XX SCH (16:00)
[2016-07-05] MEDS: MEROPENEM 1 GM/100 ML (PMX) 100 ML IVPB SCH ×2 (17:46→23:19)
[2016-07-05] MEDS: RIVAROXABAN 20 MG TABLET GTB SCH (17:51)
[2016-07-05] MEDS ORDERED: VANCOMYCIN 1.75 GM in NS 500 ML IVPB ONE (18:00)
--- NOTE | 2016-07-05 18:10 | PN ---
DATE: 07/05/2016 SUBJECTIVE: No acute changes overnight. The patient is awake, trying to communicate lying comforta raulito in bed. He is spiking fevers with a T-max 102.4, T-current 99, pulse 82, respirations 18, blo od pressure 134/62, saturation 96% on vent. LABORATORY DATA: WBC 11.3, H and H 12.2 and 35, platelets 202, neutrophils 71.9. BUN 30, creatinin e 0.84. Urinalysis was negative for nitrite, leukocyte esterase. MICROBIOLOGY: Blood culture, urine culture, influenza swab had been negative. DIAGNOSTICS: Chest x-ray revealed right basilar atelectasis or pneumonia. ANTIMICROBIALS: The patient was started on Levaquin. INDWELLINGS: Trach, PEG, Bower. PHYSICAL EXAMINATION: GENERAL: This is an obese, well-developed, ill-appearing elderly man who is awake, in no distress. HEENT: Head atraumatic, normocephalic. Sclerae anicteric. Buccal mucosa dry. NECK: Supple. Tracheostomy present. CHEST: Rise symmetrical. Breath sounds diminished to bases. HEART: S1, S2. ABDOMEN: Obese, soft, bowel tones present. EXTREMITIES: No cyanosis. ASSESSMENT: 1. Sepsis with fevers and leukocytosis on admission. 2. Healthcare-associated pneumonia. 3. Chronic respiratory failure. 4. Dysphagia. 5. Chronic atrial fibrillation. 6. History of cerebrovascular accident. 7. ALLERGY TO PENICILLIN. PLAN: We are going to start patient on vancomycin and meropenem. Send sputum cultures. Continue v ent support per pulmonary. Await for clinical improvement. Dictated By: SULTANA TELLEZ SPANISH LINGUIST for ADAN ERAZO/MARLY Conf#: [id number] DID#: [id number]
--- NOTE | 2016-07-05 19:19 | RADRPT ---
Vent Rate: 78 bpm RR Interval: 0 msec WI Interval: 0 msec QRS Duration: 126 msec QT Interval: 420 msec QTC Interval: 478 msec P-R-T Perkins: 0 - -80 - 50 degrees Atrial fibrillation Left axis deviation Right bundle branch block Possible Lateral infarct , age undetermined Abnormal ECG Electronically Signed By: Volodymyr Beavers [id number]
--- NOTE | 2016-07-05 20:22 | RADRPT ---
Echocardiogram Report Patient Name: ELIZABETH MEJIA Gender: Male Date: 1940 Study Date: 04-Jul-2016 Clockmaker Apprentice: Lindy Scott AUGIE Location: [facility] Ref. Physician: GERARDO WHITLOCK Quality: Technically Difficult Study Procedures: Transthoracic echocardiogram with complete 2D, M-Mode, and doppler examination. Indications: Congestive Heart Failure. 2D/M Mode Doppler Measurement Value Normal Ranges Measurement Value Normal Ranges LVIDd 2D 4.6 3.5 - 5.6 cm AV Peak Good 1.2 m/sec LVIDs 2D 3.0 2.1 - 4.1 cm AV Peak PG 6.2 mmHg LVPWd 2D 1.4 0.6 - 1.1 cm LVOT Peak Good 0.7 m/sec IVSd 2D 1.6 0.6 - 1.1 cm LVOT Peak PG 2.0 mmHg AoR Diam 2D 3.8 2.0 - 3.7 cm TR Peak Good 2.0 m/sec EDV 2D 98.6 cm3 TR Peak PG 15.2 mmHg ESV 2D 27.2 cm3 RVSP 30.0 mmHg LA Dimen 2D 4.7 2.3 - 4.0 cm Findings Left Ventricle: Normal left ventricular systolic function. Normal left ventricular cavity size. Normal left ventricular wall thickness. Ejection fraction is visually estimated at 5560 %. Abnormal Diastolic Function. Right Ventricle: Not well visualized. Left Atrium: There is moderate enlargement of left atrium. Right Atrium: Not well visualized. Mitral Valve: Mitral valve leaflets appear mildly thickened. Mild mitral annular calcification. Trace mitral regurgitation. Aortic Valve: No significant aortic stenosis or insufficiency. Aortic cusps appear mildly calcified. Tricuspid Valve: Tricuspid valve not well visualized. Estimated peak PA systolic pressure 30 mmHg. There is trace tricuspid regurgitation. Pericardium: There is an anterior echo free space consistent with epicardial fat pad. Aorta: Not well visualized. IVC: Inferior vena cava without respiratory collapse, however, patient on ventilator. Conclusions 1.Normal left ventricular systolic function. Normal left ventricular cavity size. Normal left ventricular wall thickness. Ejection fraction is visually estimated at 55-60 %. Abnormal Diastolic Function. 2.There is moderate enlargement of left atrium. 3.Mitral valve leaflets appear mildly thickened. Mild mitral annular calcification. Trace mitral regurgitation. 4.Tricuspid valve not well visualized. Estimated peak PA systolic pressure 30 mmHg. There is trace tricuspid regurgitation. Electronically Signed By: Gerardo Whitlock 05-Jul-2016 20:21:53 -0800 Patient Name: ELIZABETH MEJIA Study Date: 04-Jul-[id number]
[2016-07-05] MEDS: ATORVASTATIN 10 MG TAB GTB SCH (20:34)
[2016-07-05] MEDS: FAMOTIDINE 20 MG TAB GTB SCH (20:35)
[2016-07-05] MEDS: DOCUSATE SODIUM 100 MG CAP PO SCH (20:35)
[2016-07-05] MEDS ORDERED: CALCIUM CARBONATE 1.25 GM TAB GTB SCH (21:00)
[2016-07-05] MEDS: ACETAMINOPHEN 650MG/20.3ML CUP GTB PRN (22:00)
[2016-07-06] VITALS (25 sets, daily range): BP systolic 106–120; BP diastolic 54–68; PULSE 57–80; RESP 14–74
[2016-07-06] MEDS: MEROPENEM 1 GM/100 ML (PMX) 100 ML IVPB SCH ×3 (05:52→22:14)
[2016-07-06] MEDS: VANCOMYCIN 1 GM in NS 250 ML IVPB SCH ×2 (06:24→18:22)
[2016-07-06 06:33] LABS: POTASSIUM 3.6 mmol/L (3.5-5.1)
[2016-07-06 06:36] LABS: CREATININE 0.71 mg/dl (0.61-1.24)
[2016-07-06 06:37] LABS: CALCIUM 7.9 mg/dl (8.4-10.2); MAGNESIUM 2.4 mg/dl (1.7-2.5); PHOSPHORUS 2.3 mg/dl (2.5-4.9)
[2016-07-06 06:53] LABS: EOSINOPHILS % 0.4 % (0.0-7.0); HEMATOCRIT 33.1 % (42.0-52.0); HEMOGLOBIN 11.3 g/dl (14.0-18.0); LYMPHOCYTES # 0.9 10^3/ul (0.8-2.9); LYMPHOCYTES % 9.8 % (15.0-51.0); MEAN CORPUSCULAR HEMOGLOBIN 33.2 pg (29.0-33.0); MEAN CORPUSCULAR HGB CONC 34.2 g/dl (32.0-37.0); MEAN PLATELET VOLUME 9.1 fl (7.4-10.4); MONOCYTE # 1.2 10^3/ul (0.3-0.9); MONOCYTES % 12.4 % (0.0-11.0); NEUTROPHIL # 7.3 10^3/ul (1.6-7.5); NEUTROPHILS % 77.4 % (39.0-77.0); PLATELET COUNT 216 10^3/UL (140-440); RED BLOOD COUNT 3.41 10^6/ul (4.70-6.10); RED CELL DISTRIBUTION WIDTH 13.1 % (11.5-14.5); UNCORRECTED WBC 9.4 10^3/ul (4.8-10.8); WHITE BLOOD COUNT 9.4 10^3/ul (4.8-10.8)
[2016-07-06 08:03] LABS: CONDITION 1
--- NOTE | 2016-07-06 09:49 | CONS ---
Date/Time of Note Date/Time of Note DATE: 07/06/16 TIME: 09:45 Assessment/Plan Assessment/Plan Additional Assessment/Plan Assessment and recommendations; next 1. Patient admitted with pneumonia involving left lower lobe with a history of chronic respiratory failure, ventilator dependent. 2. CVA. 3. Improving leukocytosis. 4. Improving hydration status as well. The current treatment. Patient currently is on assist control of 16, tidal volume 500, PEEP of 5, 50% FiO2. Recommend decreasing FiO2 to keep O2 sat around 94%. Consultation Date/Type/Reason Admit Date/Time Jul 04, 2016 at 13:45 Initial Consult Date 07/05/16 Type of Consultation: pulmonary Referring Provider: OTIS OCHOA MD 24 HR Interval Summary Free Text/Dictation Patient condition is improving. Patient is much more awake and alert. Able to respond somewhat. Bilateral thinking and left hand movements. Has remained hemodynamically stable. General examination; elderly male, currently in no distress. Awake. Exam/Review of Systems Vital Signs Vitals Vital Signs Date Time Temp Pulse Resp B/P Pulse Ox O2 Delivery O2 Flow Rate FiO2 07/06/16 07:44 98.0 72 20 118/64 100 07/06/16 07:35 50 07/05/16 00:00 Mechanical Ventilator Intake and Output 07/05/16 07/05/16 07/06/16 15:00 23:00 07:00 Intake Total 1390 ml 1450 ml Output Total 500 ml 400 ml Balance 890 ml 1050 ml Exam H EENT examination; supple neck, no JVD. No lymphadenopathy. Tracheostomy in place. Pupils are midsize, reactive to light. Dentition is fair. Chest examination; diminished but clear breath sounds bilaterally. S1-S2 audible. No murmurs. Regular rate and rhythm. Abdomen examination; soft, nontender. No organomegaly. PEG tube in place. Bowel sounds audible. Extremity examination; no peripheral edema. STRATEGIC PLANNER examination; patient able to move left upper extremity has paralysis involving both lower and right upper extremities. Patient is awake and alert. Results Result Diagram: 07/06/16 0555 07/06/16 0555 Results 24 hrs Laboratory Tests Test 07/06/16 05:55 Anion Gap 12 Basophils # 0.0 Basophils % 0.0 Blood Urea Nitrogen 28 H Calcium Level 7.9 L Carbon Dioxide Level 31 Chloride Level 100 Creatinine 0.71 Eosinophils # 0.0 Eosinophils % 0.4 Glucose Level 136 Hematocrit 33.1 L Hemoglobin 11.3 L Lymphocytes # 0.9 Lymphocytes % 9.8 L Magnesium Level 2.4 Mean Corpuscular Hemoglobin 33.2 H Mean Corpuscular Hemoglobin Concent 34.2 Mean Corpuscular Volume 97.0 Mean Platelet Volume 9.1 Monocytes # 1.2 H Monocytes % 12.4 H Neutrophils # 7.3 Neutrophils % 77.4 H Nucleated Red Blood Cells # 0.0 Nucleated Red Blood Cells % 0.0 Phosphorus Level 2.3 L Platelet Count 216 Potassium Level 3.6 Red Blood Count 3.41 L Red Cell Distribution Width 13.1 Sodium Level 139 White Blood Count 9.4 Medications Medications Current Medications Acetaminophen (Tylenol Liquid) 650 mg Q4H PRN GTB PAIN AND OR ELEVATED TEMP Last administered on 07/05/16 22:00; Admin Dose 650 MG; Start 07/04/16 at 13:30 Amlodipine Besylate (Norvasc) 5 mg DAILY GTB Last administered on 07/05/16 10: 41; Admin Dose 5 MG; Start 07/05/16 at 09:00 Atorvastatin Calcium (Lipitor) 2.5 mg QHS GTB Last administered on 07/05/16 20: 34; Admin Dose 2.5 MG; Start 07/04/16 at 21:00 Bisacodyl (Dulcolax Supp) 10 mg Q24H PRN [place] CONSTIPATION; Start 07/04/16 at 13: 30 Carvedilol (Coreg) 12.5 mg BID GTB Last administered on 07/05/16 10:42; Admin Dose 12.5 MG; Start 07/04/16 at 21:00 Chlorhexidine Gluconate (Peridex) 15 ml Q12 MM Last administered on 07/05/16 10 :43; Admin Dose 15 ML; Start 07/04/16 at 21:00 Docusate Sodium (Colace) 100 mg QHS PO Last administered on 07/05/16 20:35; Admin Dose 100 MG; Start 07/04/16 at 21:00 Famotidine (Pepcid) 20 mg QHS GTB Last administered on 07/05/16 20:35; Admin Dose 20 MG; Start 07/04/16 at 21:00 Magnesium Hydroxide (Milk Of Mag) 30 ml DAILY GTB Last administered on 10:42; Admin Dose 30 ML; Start 07/05/16 at 09:00 Magnesium Oxide (Mag-Ox 400) 200 mg DAILY GTB Last administered on 07/05/16 10: 42; Admin Dose 200 MG; Start 07/05/16 at 09:00 Mineral Oil (Fleet Mineral Oil Enema) 133 ml DAILY PRN [place] CONSTIPATION; Start 07/04/16 at 13:30 Scopolamine (Transderm-Scop) 1 patch DAILY TRANSDERM Last administered on 10:37; Admin Dose 1 PATCH; Start 07/05/16 at 09:00 Influenza Virus Vaccine (Fluzone) 0.5 ml ONCE ONCE IM* ; Start 07/07/16 at 09:00 ; Stop 07/07/16 at 09:01 Calcium Carbonate 1.25 gm 1.25 gm BID GTB Last administered on 07/05/16 20:34; Admin Dose 1.25 GM; Start 07/05/16 at 12:30 Meropenem 100 ml @ 200 mls/hr Q8 IVPB Last administered on 07/06/16 05:52; Admin Dose 200 MLS/HR; Start 07/05/16 at 16:00 Vancomycin HCl (Vancocin) 250 ml @ 125 mls/hr Q12H IVPB Last administered on 06:24; Admin Dose 125 MLS/HR; Start 07/06/16 at 06:00 Sodium Phosphate (Neutra-Phos) 500 mg ONCE ONCE PO ; Start 07/06/16 at 11:00; Stop 07/06/16 at 11:01 RADHA DUBOIS Jul 06, 2016 09:49
--- NOTE | 2016-07-06 10:01 | PN ---
DATE: 07/06/2016 SUBJECTIVE: The patient is stable, no acute events overnight. The patient still has a low grade fe caleb overnight, though clinically improving. No other acute events. No hemoptysis, hematemesis, hem atochezia. OBJECTIVE: VITAL SIGNS: Blood pressure is 118/64, respiratory rate 20, pulse 72, temperature 98.0. HEENT: Head is normocephalic. NECK: Supple. HEART: Regular rate. LUNGS: Show diminished breath sounds at the base. ABDOMEN: Soft, nontender to palpation without rebound or guarding. EXTREMITIES: Negative for clubbing, cyanosis, no edema. DERMATOLOGIC: No rashes. MUSCULOSKELETAL: No joint effusions. NEUROLOGIC: No change in exam. MEDICATIONS: The patient's medications have been reviewed. IMAGING: Chest x-ray shows right lower lobe pneumonia. LABORATORY DATA: Shows white count 9.4, hemoglobin 11.3, hematocrit 33.1, platelet count 216. Sodi um 139, potassium 3.6, chloride 100, BUN 28, creatinine 0.76, calcium 7.9, phosphorus 2.3. ASSESSMENT AND PLAN: 1. Acute hypoxemic respiratory failure secondary to pneumonia. The patient is currently on ventila tory support. The patient's ABG has been reviewed, vent settings reviewed. Currently stable. Cont inue current treatment plan. Follow up with pulmonary. 2. Sepsis secondary to pneumonia. The patient is currently on IV antibiotics, tolerated well. Cul tures have been reviewed and negative to date. Continue to monitor. Follow up with Infectious Dise ase. 3. Chronic atrial fibrillation, rate controlled. Continue medical management with Coreg and Xarelt o. 4. Acute diastolic heart failure. The patient is clinically improving near euvolemic status. Cont inue current medical management. Follow up with Cardiology. 5. Acute encephalopathy and chronic dementia. Etiology is toxic metabolic. The patient's mental s tatus is improving. A CT scan is currently pending. Continue to monitor. 6. Dysphagia. Status post PEG tube, tube feed. 7. History of previous cerebrovascular accident with right-sided hemiparesis. Continue medical man agement. 8. Dyslipidemia. Continue statin therapy. 9. Hypertension. The patient is currently normotensive. Continue to monitor. Continue current bl ood pressure regimen. 10. Anemia of chronic disease. Continue to monitor H and H levels. 11. Gastrointestinal and deep venous thrombosis prophylaxis. Continue proton pump inhibitor and Xa relto. Dictated By: RACHEAL BELTRÁN/MARLY Conf#: [id number] DID#: [id number]
[2016-07-06] MEDS: CALCIUM CARBONATE 1.25 GM TAB GTB SCH ×2 (10:11→22:12)
[2016-07-06] MEDS: MAGNESIUM OXIDE 400 MG TAB GTB SCH (10:11)
[2016-07-06] MEDS: CHLORHEXIDINE GLUCONATE 15 ML UD CUP MM SCH ×2 (10:12→22:12)
[2016-07-06] MEDS: AMLODIPINE 5 MG TAB GTB SCH (10:12)
[2016-07-06] MEDS: MAGNESIUM HYDROXIDE 30ML CUP GTB SCH (10:12)
[2016-07-06] MEDS: SCOPOLAMINE 1.5 MG PATCH TRANSDERM SCH (10:12)
[2016-07-06] MEDS: ACETAMINOPHEN 650MG/20.3ML CUP GTB PRN (10:19)
[2016-07-06] MEDS ORDERED: NEUTRA-PHOS 250 MG PACKET PO ONE (11:00)
--- NOTE | 2016-07-06 12:47 | CONS ---
Date/Time of Note Date/Time of Note DATE: 07/06/16 TIME: 12:44 Assessment/Plan Assessment/Plan Chief Complaint/Hosp Course IMPRESSION: 1. Atrial fibrillation, currently rate controlled on Xarelto. 2. Congestive heart failure by chest x-ray, Diastolic acute on chronic 3. Hypotension now improved currently. 4. Abnormal electrocardiogram, assess for acute coronary syndrome.-neg x 3 troponin 5. Respiratory failure, chronic, status post trach. 6. Dysphagia, status post G-tube. 7. Cough assess for upper respiratory infection. 8. Fevers. 9. Coagulopathy secondary to Xarelto. 10. Mild anemia. Recc: -Tele -serial ecg's -Continue coreg/norvasc -Continue statin -Contiue xarelto -Gentle lasix diuresis and Follow volume status -Continue abx's and f/u cx data Problems: Consultation Date/Type/Reason Admit Date/Time Jul 04, 2016 at 13:45 Initial Consult Date 07/05/16 Type of Consultation: cardiology Reason for Consultation AF Referring Provider: OTIS OCHOA MD Exam/Review of Systems Vital Signs Vitals Vital Signs Date Time Temp Pulse Resp B/P Pulse Ox O2 Delivery O2 Flow Rate FiO2 07/06/16 11:05 72 14 98 50 07/06/16 07:44 98.0 118/64 07/05/16 00:00 Mechanical Ventilator Intake and Output 07/05/16 07/05/16 07/06/16 15:00 23:00 07:00 Intake Total 1390 ml 1450 ml Output Total 500 ml 400 ml Balance 890 ml 1050 ml Exam Review of Systems: CONSTITUTIONAL: No fevers, chills. PULMONARY: No sob CARDIOVASCULAR: No chest pain/palpitations GASTROINTESTINAL: No nausea/vomiting. GENITOURINARY: No hematuria/dysuria. MUSCULOSKELETAL: No myagias/arthalgias. PSYCHIATRIC: The patient denies depression. NEUROLOGIC: No weakness Constitutional: other (sleeping) Psych: no complaints ENMT: mucosa pink and moist Neck: jvd (9 cm water), other (trached), supple Respiratory: other (upper airway rhonchi) Cardiovascular: regular rate and rhythm Gastrointestinal: non-tender, soft Musculoskeletal: muscle tone (normal) Extremities: edema (trace/B) Neurological: other (No focal deficits) Results Result Diagram: 07/06/16 0555 07/06/16 0555 Results 24 hrs Laboratory Tests Test 07/06/16 05:55 Anion Gap 12 Basophils # 0.0 Basophils % 0.0 Blood Urea Nitrogen 28 H Calcium Level 7.9 L Carbon Dioxide Level 31 Chloride Level 100 Creatinine 0.71 Eosinophils # 0.0 Eosinophils % 0.4 Glucose Level 136 Hematocrit 33.1 L Hemoglobin 11.3 L Lymphocytes # 0.9 Lymphocytes % 9.8 L Magnesium Level 2.4 Mean Corpuscular Hemoglobin 33.2 H Mean Corpuscular Hemoglobin Concent 34.2 Mean Corpuscular Volume 97.0 Mean Platelet Volume 9.1 Monocytes # 1.2 H Monocytes % 12.4 H Neutrophils # 7.3 Neutrophils % 77.4 H Nucleated Red Blood Cells # 0.0 Nucleated Red Blood Cells % 0.0 Phosphorus Level 2.3 L Platelet Count 216 Potassium Level 3.6 Red Blood Count 3.41 L Red Cell Distribution Width 13.1 Sodium Level 139 White Blood Count 9.4 Medications Medications Current Medications Acetaminophen (Tylenol Liquid) 650 mg Q4H PRN GTB PAIN AND OR ELEVATED TEMP Last administered on 07/06/16 10:19; Admin Dose 650 MG; Start 07/04/16 at 13:30 Amlodipine Besylate (Norvasc) 5 mg DAILY GTB Last administered on 07/06/16 10: 12; Admin Dose 5 MG; Start 07/05/16 at 09:00 Atorvastatin Calcium (Lipitor) 2.5 mg QHS GTB Last administered on 07/05/16 20: 34; Admin Dose 2.5 MG; Start 07/04/16 at 21:00 Bisacodyl (Dulcolax Supp) 10 mg Q24H PRN [place] CONSTIPATION; Start 07/04/16 at 13: 30 Carvedilol (Coreg) 12.5 mg BID GTB Last administered on 07/06/16 10:11; Admin Dose 12.5 MG; Start 07/04/16 at 21:00 Chlorhexidine Gluconate (Peridex) 15 ml Q12 MM Last administered on 07/06/16 10 :12; Admin Dose 15 ML; Start 07/04/16 at 21:00 Docusate Sodium (Colace) 100 mg QHS PO Last administered on 07/05/16 20:35; Admin Dose 100 MG; Start 07/04/16 at 21:00 Famotidine (Pepcid) 20 mg QHS GTB Last administered on 07/05/16 20:35; Admin Dose 20 MG; Start 07/04/16 at 21:00 Magnesium Hydroxide (Milk Of Mag) 30 ml DAILY GTB Last administered on 10:12; Admin Dose 30 ML; Start 07/05/16 at 09:00 Magnesium Oxide (Mag-Ox 400) 200 mg DAILY GTB Last administered on 07/06/16 10: 11; Admin Dose 200 MG; Start 07/05/16 at 09:00 Mineral Oil (Fleet Mineral Oil Enema) 133 ml DAILY PRN [place] CONSTIPATION; Start 07/04/16 at 13:30 Scopolamine (Transderm-Scop) 1 patch DAILY TRANSDERM Last administered on 10:12; Admin Dose 1 PATCH; Start 07/05/16 at 09:00 Influenza Virus Vaccine (Fluzone) 0.5 ml ONCE ONCE IM* ; Start 07/07/16 at 09:00 ; Stop 07/07/16 at 09:01 Calcium Carbonate 1.25 gm 1.25 gm BID GTB Last administered on 07/06/16 10:11; Admin Dose 1.25 GM; Start 07/05/16 at 12:30 Meropenem 100 ml @ 200 mls/hr Q8 IVPB Last administered on 07/06/16 05:52; Admin Dose 200 MLS/HR; Start 07/05/16 at 16:00 Vancomycin HCl (Vancocin) 250 ml @ 125 mls/hr Q12H IVPB Last administered on 06:24; Admin Dose 125 MLS/HR; Start 07/06/16 at 06:00 GERARDO SARAVIA Jul 06, 2016 12:46
[2016-07-06] MEDS: FUROSEMIDE 20 MG INJ IV SCH (13:55)
--- NOTE | 2016-07-06 15:37 | CONS ---
Date/Time of Note Date/Time of Note DATE: 07/06/16 TIME: 15:35 Assessment/Plan Assessment/Plan Chief Complaint/Hosp Course SUBJECTIVE: No acute changes overnight. The patient is noncommunicative, comfortable on vent, on/off fevers MICROBIOLOGY: Blood culture, urine culture, influenza swab had been negative. DIAGNOSTICS: Chest x-ray revealed right basilar atelectasis or pneumonia. ANTIMICROBIALS: Vanco, Merrem. INDWELLINGS: Trach, PEG, Bower. PHYSICAL EXAMINATION: GENERAL: This is an obese, well-developed, ill-appearing elderly man who is awake, in no distress. HEENT: Head atraumatic, normocephalic. Sclerae anicteric. Buccal mucosa dry. NECK: Supple. Tracheostomy present. CHEST: Rise symmetrical. Breath sounds diminished to bases. HEART: S1, S2. ABDOMEN: Obese, soft, bowel tones present. EXTREMITIES: No cyanosis. ASSESSMENT: 1. Sepsis with fevers and leukocytosis. 2. Healthcare-associated pneumonia. 3. Chronic respiratory failure. 4. Dysphagia. 5. Chronic atrial fibrillation. 6. History of cerebrovascular accident. 7. ALLERGY TO PENICILLIN. PLAN: Clinically stable, with ongoing fevers, started on brd sp abx yesterday, pending sputum cx [facility] staff Problems: Consultation Date/Type/Reason Admit Date/Time Jul 04, 2016 at 13:45 Initial Consult Date 07/05/16 Type of Consultation: id Referring Provider: OTIS OCHOA MD 24 HR Interval Summary Subjective hx not possible: pt non-verbal Exam/Review of Systems Vital Signs Vitals Vital Signs Date Time Temp Pulse Resp B/P Pulse Ox O2 Delivery O2 Flow Rate FiO2 07/06/16 13:23 62 07/06/16 13:05 14 98 30 07/06/16 12:49 98.6 110/57 07/05/16 00:00 Mechanical Ventilator Intake and Output 07/05/16 07/05/16 07/06/16 15:00 23:00 07:00 Intake Total 1390 ml 1450 ml Output Total 500 ml 400 ml Balance 890 ml 1050 ml Results Result Diagram: 07/06/16 0555 07/06/16 0555 Results 24 hrs Laboratory Tests Test 07/06/16 05:55 Anion Gap 12 Basophils # 0.0 Basophils % 0.0 Blood Urea Nitrogen 28 H Calcium Level 7.9 L Carbon Dioxide Level 31 Chloride Level 100 Creatinine 0.71 Eosinophils # 0.0 Eosinophils % 0.4 Glucose Level 136 Hematocrit 33.1 L Hemoglobin 11.3 L Lymphocytes # 0.9 Lymphocytes % 9.8 L Magnesium Level 2.4 Mean Corpuscular Hemoglobin 33.2 H Mean Corpuscular Hemoglobin Concent 34.2 Mean Corpuscular Volume 97.0 Mean Platelet Volume 9.1 Monocytes # 1.2 H Monocytes % 12.4 H Neutrophils # 7.3 Neutrophils % 77.4 H Nucleated Red Blood Cells # 0.0 Nucleated Red Blood Cells % 0.0 Phosphorus Level 2.3 L Platelet Count 216 Potassium Level 3.6 Red Blood Count 3.41 L Red Cell Distribution Width 13.1 Sodium Level 139 White Blood Count 9.4 Medications Medications Current Medications Acetaminophen (Tylenol Liquid) 650 mg Q4H PRN GTB PAIN AND OR ELEVATED TEMP Last administered on 07/06/16 10:19; Admin Dose 650 MG; Start 07/04/16 at 13:30 Amlodipine Besylate (Norvasc) 5 mg DAILY GTB Last administered on 07/06/16 10: 12; Admin Dose 5 MG; Start 07/05/16 at 09:00 Atorvastatin Calcium (Lipitor) 2.5 mg QHS GTB Last administered on 07/05/16 20: 34; Admin Dose 2.5 MG; Start 07/04/16 at 21:00 Bisacodyl (Dulcolax Supp) 10 mg Q24H PRN [place] CONSTIPATION; Start 07/04/16 at 13: 30 Carvedilol (Coreg) 12.5 mg BID GTB Last administered on 07/06/16 10:11; Admin Dose 12.5 MG; Start 07/04/16 at 21:00 Chlorhexidine Gluconate (Peridex) 15 ml Q12 MM Last administered on 07/06/16 10 :12; Admin Dose 15 ML; Start 07/04/16 at 21:00 Docusate Sodium (Colace) 100 mg QHS PO Last administered on 07/05/16 20:35; Admin Dose 100 MG; Start 07/04/16 at 21:00 Famotidine (Pepcid) 20 mg QHS GTB Last administered on 07/05/16 20:35; Admin Dose 20 MG; Start 07/04/16 at 21:00 Magnesium Hydroxide (Milk Of Mag) 30 ml DAILY GTB Last administered on 10:12; Admin Dose 30 ML; Start 07/05/16 at 09:00 Magnesium Oxide (Mag-Ox 400) 200 mg DAILY GTB Last administered on 07/06/16 10: 11; Admin Dose 200 MG; Start 07/05/16 at 09:00 Mineral Oil (Fleet Mineral Oil Enema) 133 ml DAILY PRN [place] CONSTIPATION; Start 07/04/16 at 13:30 Scopolamine (Transderm-Scop) 1 patch DAILY TRANSDERM Last administered on 10:12; Admin Dose 1 PATCH; Start 07/05/16 at 09:00 Influenza Virus Vaccine (Fluzone) 0.5 ml ONCE ONCE IM* ; Start 07/07/16 at 09:00 ; Stop 07/07/16 at 09:01 Calcium Carbonate 1.25 gm 1.25 gm BID GTB Last administered on 07/06/16 10:11; Admin Dose 1.25 GM; Start 07/05/16 at 12:30 Meropenem 100 ml @ 200 mls/hr Q8 IVPB Last administered on 07/06/16 13:54; Admin Dose 200 MLS/HR; Start 07/05/16 at 16:00 Vancomycin HCl (Vancocin) 250 ml @ 125 mls/hr Q12H IVPB Last administered on 06:24; Admin Dose 125 MLS/HR; Start 07/06/16 at 06:00 Furosemide (Lasix) 20 mg DAILY IV Last administered on 07/06/16 13:55; Admin Dose 20 MG; Start 07/06/16 at 13:00 Miscellaneous Information (*Rx Drug Level Order Reminder*) 1 ONCE ONCE XX ; Start 07/07/16 at 05:00; Stop 07/07/16 at 05:01 SULTANA TELLEZ NP Jul 06, 2016 15:37
[2016-07-06] MEDS: RIVAROXABAN 20 MG TABLET GTB SCH (18:22)
--- NOTE | 2016-07-06 20:57 | RADRPT ---
PROCEDURE: CT Head without contrast. CLINICAL INDICATION: Altered mental status TECHNIQUE: The study was performed utilizing a GE 64-slice multidetector CT scanner. Direct spiral axial CT images of the brain were obtained from the vertex to the skull base without contrast. The CTDI vol is 43.37 mGy and the DLP is 912.66 mGy-cm. The images were reviewed on a PACS workstation. COMPARISON: No prior studies are available for comparison. FINDINGS: diffuse atrophy is seen with a compensatory ventricular enlargement. Mild white matter disease in the periventricular and deep white matter is seen. A large chronic left middle cerebral artery ter ritory infarct is seen. Wallerian degeneration is identified. The remainder of the tran-white deneen er differentiation is maintained. No intra or extra-axial fluid collection or mass effect or shift in the midline structures is seen. An air-fluid level on the right sphenoid sinus is seen. Near-co mplete opacification of the right ethmoid sinus and right maxillary sinus is seen. Mucosal thickeni ng in the left ethmoid, maxillary, and sphenoid sinuses is also seen. Bilateral mastoid air cell op acification is seen, right greater than left. The orbits, and calvarium are unremarkable. Vascular calcifications are seen. IMPRESSION: 1. No acute intracranial pathology. 2. 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 3. Mild diffuse volume loss and mild chronic microvascular ischemic changes. 4. Paranasal sinus and mastoid air cell disease as described above. RPTAT: HPNM Physician Kan Date Time Electronically viewed and signed by Physician Kan on 07/06/2016 20:57 /
[2016-07-06] MEDS: ATORVASTATIN 10 MG TAB GTB SCH (22:12)
[2016-07-06] MEDS: FAMOTIDINE 20 MG TAB GTB SCH (22:12)
[2016-07-06] MEDS: DOCUSATE SODIUM 100 MG CAP PO SCH (22:12)
[2016-07-07] VITALS (23 sets, daily range): BP systolic 97–126; BP diastolic 48–64; PULSE 56–87; RESP 16–22
[2016-07-07] MEDS: MEROPENEM 1 GM/100 ML (PMX) 100 ML IVPB SCH ×3 (05:13→23:06)
[2016-07-07 07:28] LABS: POTASSIUM 3.5 mmol/L (3.5-5.1)
[2016-07-07 07:30] LABS: CREATININE 0.66 mg/dl (0.61-1.24)
[2016-07-07 07:31] LABS: CALCIUM 7.7 mg/dl (8.4-10.2); MAGNESIUM 2.4 mg/dl (1.7-2.5)
--- NOTE | 2016-07-07 08:26 | CONS ---
Date/Time of Note Date/Time of Note DATE: 07/07/16 TIME: 08:25 Consult Date/Type/Reason Admit Date/Time Jul 04, 2016 at 13:45 Initial Consult Date 07/05/16 Type of Consultation: nephro Ordering Provider: OTIS OCHOA MD Subjective Pt. seen and examined, no further fevers. ID c/s noted. good uop in ortiz bag no new c/o. d/w rn at bedside. Objective Vital Signs Date Time Temp Pulse Resp B/P Pulse Ox O2 Delivery O2 Flow Rate FiO2 07/07/16 07:36 98.9 84 18 97/48 97 07/07/16 05:22 50 07/05/16 00:00 Mechanical Ventilator Intake and Output 07/06/16 07/06/16 07/07/16 15:00 23:00 07:00 Intake Total 1240 ml 1120 ml Output Total 1200 ml 400 ml Balance 40 ml 720 ml HEENT: Head is normocephalic. NECK: Supple. HEART: Regular rate. LUNGS: Show diminished breath sounds at the base. ABDOMEN: Soft, nontender to palpation without rebound or guarding. EXTREMITIES: Negative for clubbing, cyanosis, no edema. DERMATOLOGIC: No rashes. MUSCULOSKELETAL: No joint effusions. NEUROLOGIC: No change in exam. Results/Medications Result Diagram: 07/06/16 0555 07/07/16 0530 Results 24 hrs Laboratory Tests Test 07/07/16 05:30 Anion Gap 11 Blood Urea Nitrogen 26 H Calcium Level 7.7 L Carbon Dioxide Level 32 H Chloride Level 100 Creatinine 0.66 Glucose Level 158 Magnesium Level 2.4 Phosphorus Level 2.0 L Potassium Level 3.5 Sodium Level 139 Vancomycin Level Trough 11.0 Medications Current Medications Acetaminophen (Tylenol Liquid) 650 mg Q4H PRN GTB PAIN AND OR ELEVATED TEMP Last administered on 07/06/16 10:19; Admin Dose 650 MG; Start 07/04/16 at 13:30 Amlodipine Besylate (Norvasc) 5 mg DAILY GTB Last administered on 07/06/16 10: 12; Admin Dose 5 MG; Start 07/05/16 at 09:00 Atorvastatin Calcium (Lipitor) 2.5 mg QHS GTB Last administered on 07/06/16 22: 12; Admin Dose 2.5 MG; Start 07/04/16 at 21:00 Bisacodyl (Dulcolax Supp) 10 mg Q24H PRN [place] CONSTIPATION; Start 07/04/16 at 13: 30 Carvedilol (Coreg) 12.5 mg BID GTB Last administered on 07/06/16 22:12; Admin Dose 12.5 MG; Start 07/04/16 at 21:00 Chlorhexidine Gluconate (Peridex) 15 ml Q12 MM Last administered on 07/06/16 22 :12; Admin Dose 15 ML; Start 07/04/16 at 21:00 Docusate Sodium (Colace) 100 mg QHS PO Last administered on 07/06/16 22:12; Admin Dose 100 MG; Start 07/04/16 at 21:00 Famotidine (Pepcid) 20 mg QHS GTB Last administered on 07/06/16 22:12; Admin Dose 20 MG; Start 07/04/16 at 21:00 Magnesium Hydroxide (Milk Of Mag) 30 ml DAILY GTB Last administered on 10:12; Admin Dose 30 ML; Start 07/05/16 at 09:00 Magnesium Oxide (Mag-Ox 400) 200 mg DAILY GTB Last administered on 07/06/16 10: 11; Admin Dose 200 MG; Start 07/05/16 at 09:00 Mineral Oil (Fleet Mineral Oil Enema) 133 ml DAILY PRN [place] CONSTIPATION; Start 07/04/16 at 13:30 Scopolamine (Transderm-Scop) 1 patch DAILY TRANSDERM Last administered on 10:12; Admin Dose 1 PATCH; Start 07/05/16 at 09:00 Influenza Virus Vaccine (Fluzone) 0.5 ml ONCE ONCE IM* ; Start 07/07/16 at 09:00 ; Stop 07/07/16 at 09:01 Calcium Carbonate 1.25 gm 1.25 gm BID GTB Last administered on 07/06/16 22:12; Admin Dose 1.25 GM; Start 07/05/16 at 12:30 Meropenem 100 ml @ 200 mls/hr Q8 IVPB Last administered on 07/07/16 05:13; Admin Dose 200 MLS/HR; Start 07/05/16 at 16:00 Vancomycin HCl (Vancocin) 250 ml @ 125 mls/hr Q12H IVPB Last administered on 18:22; Admin Dose 125 MLS/HR; Start 07/06/16 at 06:00 Furosemide (Lasix) 20 mg DAILY IV Last administered on 07/06/16 13:55; Admin Dose 20 MG; Start 07/06/16 at 13:00 Assessment/Plan Chief Complaint/Hosp Course 1. Acute hypoxemic respiratory failure secondary to pneumonia. The patient is currently on ventilatory support. The patient's ABG has been reviewed, vent settings reviewed. Currently stable. Continue current treatment plan. Follow up with pulmonary. 2. Sepsis secondary to pneumonia. The patient is currently on IV antibiotics, tolerated well. Cultures have been reviewed and negative to date. Continue to monitor. Follow up with Infectious Disease. 3. Chronic atrial fibrillation, rate controlled. Continue medical management with Coreg and Xarelto. 4. Acute diastolic heart failure. The patient is clinically improving near euvolemic status. Continue current medical management. Follow up with Cardiology. 5. Acute encephalopathy and chronic dementia. Etiology is toxic metabolic. The patient's mental status is improving. A CT scan is currently pending. Continue to monitor. 6. Dysphagia. Status post PEG tube, tube feed. 7. History of previous cerebrovascular accident with right-sided hemiparesis. Continue medical management. 8. Dyslipidemia. Continue statin therapy. 9. Hypertension. The patient is currently normotensive. Continue to monitor. Continue current blood pressure regimen. 10. Anemia of chronic disease. Continue to monitor H and H levels. 11. Gastrointestinal and deep venous thrombosis prophylaxis. Continue proton pump inhibitor and Xarelto. Problems: CARIDAD SINGLETARY MD Jul 07, 2016 08:26
[2016-07-07 08:42] LABS: HEMATOCRIT 31.3 % (42.0-52.0); HEMOGLOBIN 10.4 g/dl (14.0-18.0); RED BLOOD COUNT 3.18 10^6/ul (4.70-6.10); UNCORRECTED WBC 7.7 10^3/ul (4.8-10.8); WHITE BLOOD COUNT 7.7 10^3/ul (4.8-10.8)
[2016-07-07 08:43] LABS: BASOPHILS % 0.4 % (0.0-2.0); EOSINOPHILS # 0.2 10^3/ul (0.0-0.5); EOSINOPHILS % 2.2 % (0.0-7.0); LYMPHOCYTES # 1.1 10^3/ul (0.8-2.9); MEAN CORPUSCULAR HEMOGLOBIN 32.7 pg (29.0-33.0); MEAN CORPUSCULAR HGB CONC 33.2 g/dl (32.0-37.0); MEAN CORPUSCULAR VOLUME 98.4 fl (82.0-101.0); MEAN PLATELET VOLUME 10.9 fl (7.4-10.4); MONOCYTE # 0.8 10^3/ul (0.3-0.9); MONOCYTES % 10.7 % (0.0-11.0); NEUTROPHIL # 5.6 10^3/ul (1.6-7.5); NEUTROPHILS % 72.2 % (39.0-77.0); PLATELET COUNT 216 10^3/UL (140-440)
[2016-07-07] MEDS: AMLODIPINE 5 MG TAB GTB SCH (09:00)
[2016-07-07] MEDS: FUROSEMIDE 20 MG INJ IV SCH (09:00)
[2016-07-07] MEDS ORDERED: INFLUENZA VIRUS VACCINE 0.5 ML (DISPENSING) IM* ONE (09:00)
[2016-07-07] MEDS: VANCOMYCIN 1 GM in NS 250 ML IVPB SCH ×2 (09:24→17:55)
[2016-07-07] MEDS: CHLORHEXIDINE GLUCONATE 15 ML UD CUP MM SCH ×2 (09:58→20:26)
[2016-07-07] MEDS: MAGNESIUM HYDROXIDE 30ML CUP GTB SCH (09:58)
[2016-07-07] MEDS: CALCIUM CARBONATE 1.25 GM TAB GTB SCH ×2 (09:59→20:26)
[2016-07-07] MEDS: MAGNESIUM OXIDE 400 MG TAB GTB SCH (10:08)
[2016-07-07] MEDS: SCOPOLAMINE 1.5 MG PATCH TRANSDERM SCH (10:10)
--- NOTE | 2016-07-07 15:47 | PN ---
DATE: 07/07/2016 PULMONARY FOLLOWUP SUBJECTIVE: The patient continues to remain stable. No new events. PHYSICAL EXAMINATION: VITAL SIGNS: Temperature 99, pulse is 67, blood pressure 115/60, O2 saturation 96% on FIO2 of 50%. NECK: Trach site clean and intact. CARDIAC EXAM: S1, S2. No added sounds or murmurs. CHEST: Diminished air entry bilaterally. No rales or wheezes. ABDOMEN: Soft, nontender. No guarding or rebound. EXTREMITIES: No cyanosis or clubbing. Edema of +1. NEUROLOGIC: Generalized weakness. IMPRESSION AND PLAN: 1. Vent-dependent respiratory failure. 2. Healthcare-associated pneumonia. 3. History of cerebrovascular accident. 4. Dysphagia, with G-tube. PLAN: 1. Continue broad-spectrum antibiotic coverage. 2. Continue vent support. 3. Continue tube feedings. 4. Continue rate control anticoagulation with Xarelto. 5. DVT and GI prophylaxis. Dictated By: CYNDY PEOPLES/MARLY Conf#: [id number] DID#: [id number]
--- NOTE | 2016-07-07 17:50 | CONS ---
Date/Time of Note Date/Time of Note DATE: 07/07/16 TIME: 17:46 Assessment/Plan Assessment/Plan Additional Assessment/Plan Atrial fibrillation, CHF, Respiratory failure, dysphagia s/p PEG,Anemia Continue Coreg Continue Norvasc Continue Xarelto Continue Antibiotics Continue Lasix Consultation Date/Type/Reason Admit Date/Time Jul 04, 2016 at 13:45 Psychological: no complaints Social History Smoking Status: Former smoker Exam/Review of Systems Vital Signs Vitals Vital Signs Date Time Temp Pulse Resp B/P Pulse Ox O2 Delivery O2 Flow Rate FiO2 07/07/16 16:37 87 07/07/16 16:12 99.2 19 126/64 97 07/07/16 15:12 40 07/05/16 00:00 Mechanical Ventilator Intake and Output 07/06/16 07/06/16 07/07/16 15:00 23:00 07:00 Intake Total 1240 ml 1120 ml Output Total 1200 ml 400 ml Balance 40 ml 720 ml Exam Head: atraumatic, normocephalic Respiratory: clear to auscultation Cardiovascular: irregular rhythm Gastrointestinal: nl liver, spleen, non-tender, soft Extremities: normal pulses Results Result Diagram: 07/07/16 0530 07/07/16 0530 Results 24 hrs Laboratory Tests Test 07/07/16 05:30 Anion Gap 11 Basophils # 0.0 Basophils % 0.4 Blood Urea Nitrogen 26 H Calcium Level 7.7 L Carbon Dioxide Level 32 H Chloride Level 100 Creatinine 0.66 Eosinophils # 0.2 Eosinophils % 2.2 Glucose Level 158 Hematocrit 31.3 L Hemoglobin 10.4 L Lymphocytes # 1.1 Lymphocytes % 14.0 L Magnesium Level 2.4 Mean Corpuscular Hemoglobin 32.7 Mean Corpuscular Hemoglobin Concent 33.2 Mean Corpuscular Volume 98.4 Mean Platelet Volume 10.9 H Monocytes # 0.8 Monocytes % 10.7 Neutrophils # 5.6 Neutrophils % 72.2 Nucleated Red Blood Cells # 0.0 Nucleated Red Blood Cells % 0.0 Phosphorus Level 2.0 L Platelet Count 216 Potassium Level 3.5 Red Blood Count 3.18 L Red Cell Distribution Width 13.0 Sodium Level 139 Vancomycin Level Trough 11.0 White Blood Count 7.7 Medications Medications Current Medications Acetaminophen (Tylenol Liquid) 650 mg Q4H PRN GTB PAIN AND OR ELEVATED TEMP Last administered on 07/06/16 10:19; Admin Dose 650 MG; Start 07/04/16 at 13:30 Amlodipine Besylate (Norvasc) 5 mg DAILY GTB Last administered on 07/06/16 10: 12; Admin Dose 5 MG; Start 07/05/16 at 09:00 Atorvastatin Calcium (Lipitor) 2.5 mg QHS GTB Last administered on 07/06/16 22: 12; Admin Dose 2.5 MG; Start 07/04/16 at 21:00 Bisacodyl (Dulcolax Supp) 10 mg Q24H PRN [place] CONSTIPATION; Start 07/04/16 at 13: 30 Carvedilol (Coreg) 12.5 mg BID GTB Last administered on 07/06/16 22:12; Admin Dose 12.5 MG; Start 07/04/16 at 21:00 Chlorhexidine Gluconate (Peridex) 15 ml Q12 MM Last administered on 07/07/16 09 :58; Admin Dose 15 ML; Start 07/04/16 at 21:00 Docusate Sodium (Colace) 100 mg QHS PO Last administered on 07/06/16 22:12; Admin Dose 100 MG; Start 07/04/16 at 21:00 Famotidine (Pepcid) 20 mg QHS GTB Last administered on 07/06/16 22:12; Admin Dose 20 MG; Start 07/04/16 at 21:00 Magnesium Hydroxide (Milk Of Mag) 30 ml DAILY GTB Last administered on 09:58; Admin Dose 30 ML; Start 07/05/16 at 09:00 Magnesium Oxide (Mag-Ox 400) 200 mg DAILY GTB Last administered on 07/07/16 10: 08; Admin Dose 200 MG; Start 07/05/16 at 09:00 Mineral Oil (Fleet Mineral Oil Enema) 133 ml DAILY PRN [place] CONSTIPATION; Start 07/04/16 at 13:30 Calcium Carbonate 1.25 gm 1.25 gm BID GTB Last administered on 07/07/16 09:59; Admin Dose 1.25 GM; Start 07/05/16 at 12:30 Meropenem 100 ml @ 200 mls/hr Q8 IVPB Last administered on 07/07/16 13:15; Admin Dose 200 MLS/HR; Start 07/05/16 at 16:00 Vancomycin HCl (Vancocin) 250 ml @ 125 mls/hr Q12H IVPB Last administered on 09:24; Admin Dose 125 MLS/HR; Start 07/06/16 at 06:00 Furosemide (Lasix) 20 mg DAILY IV Last administered on 07/06/16 13:55; Admin Dose 20 MG; Start 07/06/16 at 13:00 Scopolamine (Transderm-Scop) 1 patch Q72H TRANSDERM Last administered on 10:10; Admin Dose 1 PATCH; Start 07/07/16 at 10:00 GABRIELA PITTMAN M.D. Jul 07, 2016 17:50
[2016-07-07] MEDS: RIVAROXABAN 20 MG TABLET GTB SCH (17:55)
--- NOTE | 2016-07-07 19:08 | CONS ---
Date/Time of Note Date/Time of Note DATE: 07/07/16 TIME: 19:07 Assessment/Plan Assessment/Plan Chief Complaint/Hosp Course SUBJECTIVE: No acute changes overnight. The patient is noncommunicative, comfortable on vent, no fevers MICROBIOLOGY: Blood culture, urine culture, influenza swab had been negative. DIAGNOSTICS: Chest x-ray revealed right basilar atelectasis or pneumonia. ANTIMICROBIALS: Vanco, Merrem. INDWELLINGS: Trach, PEG, Bower. PHYSICAL EXAMINATION: GENERAL: This is an obese, well-developed, ill-appearing elderly man who is awake, in no distress. HEENT: Head atraumatic, normocephalic. Sclerae anicteric. Buccal mucosa dry. NECK: Supple. Tracheostomy present. CHEST: Rise symmetrical. Breath sounds diminished to bases. HEART: S1, S2. ABDOMEN: Obese, soft, bowel tones present. EXTREMITIES: No cyanosis. ASSESSMENT: 1. Sepsis with fevers and leukocytosis. 2. Healthcare-associated pneumonia. 3. Chronic respiratory failure. 4. Dysphagia. 5. Chronic atrial fibrillation. 6. History of cerebrovascular accident. 7. ALLERGY TO PENICILLIN. PLAN: Clinically stable, afebrile for 24 hrs, continue abx, f/u sputum cx [facility] staff Problems: Consultation Date/Type/Reason Admit Date/Time Jul 04, 2016 at 13:45 Initial Consult Date 07/05/16 Type of Consultation: ID Referring Provider: OTIS OCHOA MD Exam/Review of Systems Vital Signs Vitals Vital Signs Date Time Temp Pulse Resp B/P Pulse Ox O2 Delivery O2 Flow Rate FiO2 07/07/16 17:45 70 18 98 30 07/07/16 16:12 99.2 126/64 07/05/16 00:00 Mechanical Ventilator Intake and Output 07/06/16 07/06/16 07/07/16 15:00 23:00 07:00 Intake Total 1240 ml 1120 ml Output Total 1200 ml 400 ml Balance 40 ml 720 ml Results Result Diagram: 07/07/16 0530 07/07/16 0530 Results 24 hrs Laboratory Tests Test 07/07/16 05:30 Anion Gap 11 Basophils # 0.0 Basophils % 0.4 Blood Urea Nitrogen 26 H Calcium Level 7.7 L Carbon Dioxide Level 32 H Chloride Level 100 Creatinine 0.66 Eosinophils # 0.2 Eosinophils % 2.2 Glucose Level 158 Hematocrit 31.3 L Hemoglobin 10.4 L Lymphocytes # 1.1 Lymphocytes % 14.0 L Magnesium Level 2.4 Mean Corpuscular Hemoglobin 32.7 Mean Corpuscular Hemoglobin Concent 33.2 Mean Corpuscular Volume 98.4 Mean Platelet Volume 10.9 H Monocytes # 0.8 Monocytes % 10.7 Neutrophils # 5.6 Neutrophils % 72.2 Nucleated Red Blood Cells # 0.0 Nucleated Red Blood Cells % 0.0 Phosphorus Level 2.0 L Platelet Count 216 Potassium Level 3.5 Red Blood Count 3.18 L Red Cell Distribution Width 13.0 Sodium Level 139 Vancomycin Level Trough 11.0 White Blood Count 7.7 Medications Medications Current Medications Acetaminophen (Tylenol Liquid) 650 mg Q4H PRN GTB PAIN AND OR ELEVATED TEMP Last administered on 07/06/16 10:19; Admin Dose 650 MG; Start 07/04/16 at 13:30 Amlodipine Besylate (Norvasc) 5 mg DAILY GTB Last administered on 07/06/16 10: 12; Admin Dose 5 MG; Start 07/05/16 at 09:00 Atorvastatin Calcium (Lipitor) 2.5 mg QHS GTB Last administered on 07/06/16 22: 12; Admin Dose 2.5 MG; Start 07/04/16 at 21:00 Bisacodyl (Dulcolax Supp) 10 mg Q24H PRN [place] CONSTIPATION; Start 07/04/16 at 13: 30 Carvedilol (Coreg) 12.5 mg BID GTB Last administered on 07/06/16 22:12; Admin Dose 12.5 MG; Start 07/04/16 at 21:00 Chlorhexidine Gluconate (Peridex) 15 ml Q12 MM Last administered on 07/07/16 09 :58; Admin Dose 15 ML; Start 07/04/16 at 21:00 Docusate Sodium (Colace) 100 mg QHS PO Last administered on 07/06/16 22:12; Admin Dose 100 MG; Start 07/04/16 at 21:00 Famotidine (Pepcid) 20 mg QHS GTB Last administered on 07/06/16 22:12; Admin Dose 20 MG; Start 07/04/16 at 21:00 Magnesium Hydroxide (Milk Of Mag) 30 ml DAILY GTB Last administered on 09:58; Admin Dose 30 ML; Start 07/05/16 at 09:00 Magnesium Oxide (Mag-Ox 400) 200 mg DAILY GTB Last administered on 07/07/16 10: 08; Admin Dose 200 MG; Start 07/05/16 at 09:00 Mineral Oil (Fleet Mineral Oil Enema) 133 ml DAILY PRN [place] CONSTIPATION; Start 07/04/16 at 13:30 Calcium Carbonate 1.25 gm 1.25 gm BID GTB Last administered on 07/07/16 09:59; Admin Dose 1.25 GM; Start 07/05/16 at 12:30 Meropenem 100 ml @ 200 mls/hr Q8 IVPB Last administered on 07/07/16 13:15; Admin Dose 200 MLS/HR; Start 07/05/16 at 16:00 Vancomycin HCl (Vancocin) 250 ml @ 125 mls/hr Q12H IVPB Last administered on 17:55; Admin Dose 125 MLS/HR; Start 07/06/16 at 06:00 Furosemide (Lasix) 20 mg DAILY IV Last administered on 07/06/16 13:55; Admin Dose 20 MG; Start 07/06/16 at 13:00 Scopolamine (Transderm-Scop) 1 patch Q72H TRANSDERM Last administered on 10:10; Admin Dose 1 PATCH; Start 07/07/16 at 10:00 SULTANA TELLEZ NP Jul 07, 2016 19:07
[2016-07-07] MEDS: ATORVASTATIN 10 MG TAB GTB SCH (20:27)
[2016-07-07] MEDS: DOCUSATE SODIUM 100 MG CAP PO SCH (20:28)
[2016-07-07] MEDS: FAMOTIDINE 20 MG TAB GTB SCH (20:29)
[2016-07-08] VITALS (24 sets, daily range): BP systolic 104–146; BP diastolic 52–72; PULSE 60–87; RESP 14–25
[2016-07-08] MEDS: MEROPENEM 1 GM/100 ML (PMX) 100 ML IVPB SCH ×3 (05:46→22:52)
[2016-07-08] MEDS: VANCOMYCIN 1 GM in NS 250 ML IVPB SCH ×2 (06:42→17:32)
--- NOTE | 2016-07-08 09:06 | CONS ---
Date/Time of Note Date/Time of Note DATE: 07/08/16 TIME: 09:05 Consult Date/Type/Reason Admit Date/Time Jul 04, 2016 at 13:45 Initial Consult Date 07/05/16 Type of Consultation: nephro Ordering Provider: OTIS OCHOA MD Subjective pt. seen and examined. good uop. no distress on vent. last cxr and vent settings reviewed. Objective Vital Signs Date Time Temp Pulse Resp B/P Pulse Ox O2 Delivery O2 Flow Rate FiO2 07/08/16 08:57 60 07/08/16 07:49 97.6 20 123/68 100 07/08/16 05:13 30 07/05/16 00:00 Mechanical Ventilator Intake and Output 07/07/16 07/07/16 07/08/16 15:00 23:00 07:00 Intake Total 1140 ml 1195 ml Output Total 650 ml 400 ml Balance 490 ml 795 ml NECK: Trach site clean and intact. CARDIAC EXAM: S1, S2. No added sounds or murmurs. CHEST: Diminished air entry bilaterally. No rales or wheezes. ABDOMEN: Soft, nontender. No guarding or rebound. EXTREMITIES: No cyanosis or clubbing. Edema of +1. NEUROLOGIC: Generalized weakness. Results/Medications Result Diagram: 07/07/16 0530 07/07/16 0530 Medications Current Medications Acetaminophen (Tylenol Liquid) 650 mg Q4H PRN GTB PAIN AND OR ELEVATED TEMP Last administered on 07/06/16 10:19; Admin Dose 650 MG; Start 07/04/16 at 13:30 Amlodipine Besylate (Norvasc) 5 mg DAILY GTB Last administered on 07/06/16 10: 12; Admin Dose 5 MG; Start 07/05/16 at 09:00 Atorvastatin Calcium (Lipitor) 2.5 mg QHS GTB Last administered on 07/07/16 20: 27; Admin Dose 2.5 MG; Start 07/04/16 at 21:00 Bisacodyl (Dulcolax Supp) 10 mg Q24H PRN [place] CONSTIPATION; Start 07/04/16 at 13: 30 Carvedilol (Coreg) 12.5 mg BID GTB Last administered on 07/07/16 20:32; Admin Dose 12.5 MG; Start 07/04/16 at 21:00 Chlorhexidine Gluconate (Peridex) 15 ml Q12 MM Last administered on 07/07/16 20 :26; Admin Dose 15 ML; Start 07/04/16 at 21:00 Docusate Sodium (Colace) 100 mg QHS PO Last administered on 07/07/16 20:28; Admin Dose 100 MG; Start 07/04/16 at 21:00 Famotidine (Pepcid) 20 mg QHS GTB Last administered on 07/07/16 20:29; Admin Dose 20 MG; Start 07/04/16 at 21:00 Magnesium Hydroxide (Milk Of Mag) 30 ml DAILY GTB Last administered on 09:58; Admin Dose 30 ML; Start 07/05/16 at 09:00 Magnesium Oxide (Mag-Ox 400) 200 mg DAILY GTB Last administered on 07/07/16 10: 08; Admin Dose 200 MG; Start 07/05/16 at 09:00 Mineral Oil (Fleet Mineral Oil Enema) 133 ml DAILY PRN [place] CONSTIPATION; Start 07/04/16 at 13:30 Calcium Carbonate 1.25 gm 1.25 gm BID GTB Last administered on 07/07/16 20:26; Admin Dose 1.25 GM; Start 07/05/16 at 12:30 Meropenem 100 ml @ 200 mls/hr Q8 IVPB Last administered on 07/08/16 05:46; Admin Dose 200 MLS/HR; Start 07/05/16 at 16:00 Vancomycin HCl (Vancocin) 250 ml @ 125 mls/hr Q12H IVPB Last administered on 06:42; Admin Dose 125 MLS/HR; Start 07/06/16 at 06:00 Furosemide (Lasix) 20 mg DAILY IV Last administered on 07/06/16 13:55; Admin Dose 20 MG; Start 07/06/16 at 13:00 Scopolamine (Transderm-Scop) 1 patch Q72H TRANSDERM Last administered on 10:10; Admin Dose 1 PATCH; Start 07/07/16 at 10:00 Assessment/Plan Chief Complaint/Hosp Course 1. Acute hypoxemic respiratory failure secondary to pneumonia. The patient is currently on ventilatory support. The patient's ABG has been reviewed, vent settings reviewed. Currently stable. Continue current treatment plan. Follow up with pulmonary. 2. Sepsis secondary to pneumonia. The patient is currently on IV antibiotics, tolerated well. Cultures have been reviewed and negative to date. Continue to monitor. Follow up with Infectious Disease. 3. Chronic atrial fibrillation, rate controlled. Continue medical management with Coreg and Xarelto. 4. Acute diastolic heart failure. The patient is clinically improving near euvolemic status. Continue current medical management. Follow up with Cardiology. 5. Acute encephalopathy and chronic dementia. Etiology is toxic metabolic. The patient's mental status is improving. A CT scan is currently pending. Continue to monitor. 6. Dysphagia. Status post PEG tube, tube feed. 7. History of previous cerebrovascular accident with right-sided hemiparesis. Continue medical management. 8. Dyslipidemia. Continue statin therapy. 9. Hypertension. The patient is currently normotensive. Continue to monitor. Continue current blood pressure regimen. 10. Anemia of chronic disease. Continue to monitor H and H levels. 11. Gastrointestinal and deep venous thrombosis prophylaxis. Continue proton pump inhibitor and Xarelto. Problems: CARIDAD SINGLETARY MD Jul 08, 2016 09:06
[2016-07-08] MEDS: AMLODIPINE 5 MG TAB GTB SCH (09:29)
[2016-07-08] MEDS: CALCIUM CARBONATE 1.25 GM TAB GTB SCH ×2 (09:30→21:52)
[2016-07-08] MEDS: FUROSEMIDE 20 MG INJ IV SCH (09:30)
[2016-07-08] MEDS: MAGNESIUM OXIDE 400 MG TAB GTB SCH (09:30)
[2016-07-08] MEDS: MAGNESIUM HYDROXIDE 30ML CUP GTB SCH (09:30)
[2016-07-08] MEDS: CHLORHEXIDINE GLUCONATE 15 ML UD CUP MM SCH ×2 (09:30→21:53)
[2016-07-08] MEDS: ALBUTEROL HFA 8 GM INHALER INH PRN ×2 (11:50→17:14)
--- NOTE | 2016-07-08 15:16 | CONS ---
Date/Time of Note Date/Time of Note DATE: 07/08/16 TIME: 15:16 Assessment/Plan Assessment/Plan Chief Complaint/Hosp Course SUBJECTIVE: No acute changes overnight. The patient is noncommunicative, comfortable on vent, no fevers MICROBIOLOGY: Blood culture, urine culture, influenza swab had been negative. DIAGNOSTICS: Chest x-ray revealed right basilar atelectasis or pneumonia. ANTIMICROBIALS: Vanco, Merrem. INDWELLINGS: Trach, PEG, Bower. PHYSICAL EXAMINATION: GENERAL: This is an obese, well-developed, ill-appearing elderly man who is awake, in no distress. HEENT: Head atraumatic, normocephalic. Sclerae anicteric. Buccal mucosa dry. NECK: Supple. Tracheostomy present. CHEST: Rise symmetrical. Breath sounds diminished to bases. HEART: S1, S2. ABDOMEN: Obese, soft, bowel tones present. EXTREMITIES: No cyanosis. ASSESSMENT: 1. Sepsis with fevers and leukocytosis. 2. Healthcare-associated pneumonia. 3. Chronic respiratory failure. 4. Dysphagia. 5. Chronic atrial fibrillation. 6. History of cerebrovascular accident. 7. ALLERGY TO PENICILLIN. PLAN: Remains stable, afebrile, continue abx, f/u sputum cx [facility] staff Problems: Consultation Date/Type/Reason Admit Date/Time Jul 04, 2016 at 13:45 Initial Consult Date 07/05/16 Type of Consultation: id Referring Provider: OTIS OCHOA MD Exam/Review of Systems Vital Signs Vitals Vital Signs Date Time Temp Pulse Resp B/P Pulse Ox O2 Delivery O2 Flow Rate FiO2 07/08/16 15:14 97.7 77 18 146/70 98 07/08/16 13:32 30 07/05/16 00:00 Mechanical Ventilator Intake and Output 07/07/16 07/07/16 07/08/16 15:00 23:00 07:00 Intake Total 1140 ml 1195 ml Output Total 650 ml 400 ml Balance 490 ml 795 ml Results Result Diagram: 07/07/16 0530 07/07/16 0530 Medications Medications Current Medications Acetaminophen (Tylenol Liquid) 650 mg Q4H PRN GTB PAIN AND OR ELEVATED TEMP Last administered on 07/06/16t 10:19; Admin Dose 650 MG; Start 07/04/16 at 13:30 Amlodipine Besylate (Norvasc) 5 mg DAILY GTB Last administered on 07/08/16 09: 29; Admin Dose 5 MG; Start 07/05/16 at 09:00 Atorvastatin Calcium (Lipitor) 2.5 mg QHS GTB Last administered on 07/07/16 20: 27; Admin Dose 2.5 MG; Start 07/04/16 at 21:00 Bisacodyl (Dulcolax Supp) 10 mg Q24H PRN [place] CONSTIPATION; Start 07/04/16 at 13: 30 Carvedilol (Coreg) 12.5 mg BID GTB Last administered on 07/08/16 09:30; Admin Dose 12.5 MG; Start 07/04/16 at 21:00 Chlorhexidine Gluconate (Peridex) 15 ml Q12 MM Last administered on 07/08/16 09 :30; Admin Dose 15 ML; Start 07/04/16 at 21:00 Docusate Sodium (Colace) 100 mg QHS PO Last administered on 07/07/16 20:28; Admin Dose 100 MG; Start 07/04/16 at 21:00 Famotidine (Pepcid) 20 mg QHS GTB Last administered on 07/07/16 20:29; Admin Dose 20 MG; Start 07/04/16 at 21:00 Magnesium Hydroxide (Milk Of Mag) 30 ml DAILY GTB Last administered on 09:30; Admin Dose 30 ML; Start 07/05/16 at 09:00 Magnesium Oxide (Mag-Ox 400) 200 mg DAILY GTB Last administered on 07/08/16 09: 30; Admin Dose 200 MG; Start 07/05/16 at 09:00 Mineral Oil (Fleet Mineral Oil Enema) 133 ml DAILY PRN [place] CONSTIPATION; Start 07/04/16 at 13:30 Calcium Carbonate 1.25 gm 1.25 gm BID GTB Last administered on 07/08/16 09:30; Admin Dose 1.25 GM; Start 07/05/16 at 12:30 Meropenem 100 ml @ 200 mls/hr Q8 IVPB Last administered on 07/08/16 14:28; Admin Dose 200 MLS/HR; Start 07/05/16 at 16:00 Vancomycin HCl (Vancocin) 250 ml @ 125 mls/hr Q12H IVPB Last administered on 06:42; Admin Dose 125 MLS/HR; Start 07/06/16 at 06:00 Furosemide (Lasix) 20 mg DAILY IV Last administered on 07/08/16 09:30; Admin Dose 20 MG; Start 07/06/16 at 13:00 Scopolamine (Transderm-Scop) 1 patch Q72H TRANSDERM Last administered on 10:10; Admin Dose 1 PATCH; Start 07/07/16 at 10:00 SULTANA TELLEZ NP Jul 08, 2016 15:16
[2016-07-08] MEDS: RIVAROXABAN 20 MG TABLET GTB SCH (17:32)
--- NOTE | 2016-07-08 18:23 | CONS ---
Date/Time of Note Date/Time of Note DATE: 07/08/16 TIME: 18:22 Assessment/Plan Assessment/Plan Additional Assessment/Plan Atrial fibrillation, CHF, Respiratory failure, dysphagia s/p PEG,Anemia Avoid Volume Overload Continue Coreg Continue Norvasc Continue Xarelto Continue Antibiotics Continue Lasix Consultation Date/Type/Reason Admit Date/Time Jul 04, 2016 at 13:45 Initial Consult Date 07/05/16 Type of Consultation: id Referring Provider: OTIS OCHOA MD Exam/Review of Systems Vital Signs Vitals Vital Signs Date Time Temp Pulse Resp B/P Pulse Ox O2 Delivery O2 Flow Rate FiO2 07/08/16 17:15 69 21 93 30 07/08/16 15:14 97.7 146/70 07/05/16 00:00 Mechanical Ventilator Intake and Output 07/07/16 07/07/16 07/08/16 15:00 23:00 07:00 Intake Total 1140 ml 1195 ml Output Total 650 ml 400 ml Balance 490 ml 795 ml Exam Head: atraumatic, normocephalic Respiratory: clear to auscultation Cardiovascular: irregular rhythm Gastrointestinal: nl liver, spleen, non-tender, soft Extremities: normal pulses Results Result Diagram: 07/07/16 0530 07/07/16 0530 Medications Medications Current Medications Acetaminophen (Tylenol Liquid) 650 mg Q4H PRN GTB PAIN AND OR ELEVATED TEMP Last administered on 07/06/16 10:19; Admin Dose 650 MG; Start 07/04/16 at 13:30 Amlodipine Besylate (Norvasc) 5 mg DAILY GTB Last administered on 07/08/16 09: 29; Admin Dose 5 MG; Start 07/05/16 at 09:00 Atorvastatin Calcium (Lipitor) 2.5 mg QHS GTB Last administered on 07/07/16 20: 27; Admin Dose 2.5 MG; Start 07/04/16 at 21:00 Bisacodyl (Dulcolax Supp) 10 mg Q24H PRN [place] CONSTIPATION; Start 07/04/16 at 13: 30 Carvedilol (Coreg) 12.5 mg BID GTB Last administered on 07/08/16 09:30; Admin Dose 12.5 MG; Start 07/04/16 at 21:00 Chlorhexidine Gluconate (Peridex) 15 ml Q12 MM Last administered on 07/08/16 09 :30; Admin Dose 15 ML; Start 07/04/16 at 21:00 Docusate Sodium (Colace) 100 mg QHS PO Last administered on 07/07/16 20:28; Admin Dose 100 MG; Start 07/04/16 at 21:00 Famotidine (Pepcid) 20 mg QHS GTB Last administered on 07/07/16 20:29; Admin Dose 20 MG; Start 07/04/16 at 21:00 Magnesium Hydroxide (Milk Of Mag) 30 ml DAILY GTB Last administered on 09:30; Admin Dose 30 ML; Start 07/05/16 at 09:00 Magnesium Oxide (Mag-Ox 400) 200 mg DAILY GTB Last administered on 07/08/16 09: 30; Admin Dose 200 MG; Start 07/05/16 at 09:00 Mineral Oil (Fleet Mineral Oil Enema) 133 ml DAILY PRN [place] CONSTIPATION; Start 07/04/16 at 13:30 Calcium Carbonate 1.25 gm 1.25 gm BID GTB Last administered on 07/08/16 09:30; Admin Dose 1.25 GM; Start 07/05/16 at 12:30 Meropenem 100 ml @ 200 mls/hr Q8 IVPB Last administered on 07/08/16 14:28; Admin Dose 200 MLS/HR; Start 07/05/16 at 16:00 Vancomycin HCl (Vancocin) 250 ml @ 125 mls/hr Q12H IVPB Last administered on 17:32; Admin Dose 125 MLS/HR; Start 07/06/16 at 06:00 Furosemide (Lasix) 20 mg DAILY IV Last administered on 07/08/16 09:30; Admin Dose 20 MG; Start 07/06/16 at 13:00 Scopolamine (Transderm-Scop) 1 patch Q72H TRANSDERM Last administered on 10:10; Admin Dose 1 PATCH; Start 07/07/16 at 10:00 GABRIELA PITTMAN M.D. Jul 08, 2016 18:23
[2016-07-08] MEDS: IPRATROPIUM (HFA) 12.9 GM INHALER INH SCH (19:37)
[2016-07-08] MEDS: ALBUTEROL HFA 8 GM INHALER INH SCH (19:38)
[2016-07-08] MEDS: ATORVASTATIN 10 MG TAB GTB SCH (21:52)
[2016-07-08] MEDS: FAMOTIDINE 20 MG TAB GTB SCH (21:52)
[2016-07-08] MEDS: DOCUSATE SODIUM 100 MG CAP PO SCH (21:52)
[2016-07-09] VITALS (24 sets, daily range): BP systolic 107–132; BP diastolic 60–88; PULSE 53–76; RESP 14–26
[2016-07-09] MEDS: IPRATROPIUM (HFA) 12.9 GM INHALER INH SCH ×4 (01:27→19:49)
[2016-07-09] MEDS: ALBUTEROL HFA 8 GM INHALER INH SCH ×4 (01:27→19:49)
[2016-07-09] MEDS: MEROPENEM 1 GM/100 ML (PMX) 100 ML IVPB SCH ×3 (05:20→21:00)
[2016-07-09] MEDS: VANCOMYCIN 1 GM in NS 250 ML IVPB SCH ×2 (05:59→18:32)
[2016-07-09 06:28] LABS: BASOPHILS % 0.4 % (0.0-2.0); EOSINOPHILS # 0.3 10^3/ul (0.0-0.5); EOSINOPHILS % 3.2 % (0.0-7.0); HEMATOCRIT 30.7 % (42.0-52.0); HEMOGLOBIN 10.6 g/dl (14.0-18.0); LYMPHOCYTES # 1.4 10^3/ul (0.8-2.9); LYMPHOCYTES % 16.7 % (15.0-51.0); MEAN CORPUSCULAR HEMOGLOBIN 33.1 pg (29.0-33.0); MEAN CORPUSCULAR HGB CONC 34.5 g/dl (32.0-37.0); MEAN CORPUSCULAR VOLUME 95.9 fl (82.0-101.0); MEAN PLATELET VOLUME 8.7 fl (7.4-10.4); MONOCYTE # 0.8 10^3/ul (0.3-0.9); MONOCYTES % 9.4 % (0.0-11.0); NEUTROPHIL # 5.9 10^3/ul (1.6-7.5); NEUTROPHILS % 70.3 % (39.0-77.0); PLATELET COUNT 259 10^3/UL (140-440); RED CELL DISTRIBUTION WIDTH 12.9 % (11.5-14.5); UNCORRECTED WBC 8.4 10^3/ul (4.8-10.8); WHITE BLOOD COUNT 8.4 10^3/ul (4.8-10.8)
[2016-07-09 06:39] LABS: CONDITION 1
[2016-07-09 06:44] LABS: POTASSIUM 3.6 mmol/L (3.5-5.1)
[2016-07-09 06:47] LABS: CREATININE 0.61 mg/dl (0.61-1.24)
[2016-07-09 06:48] LABS: CALCIUM 7.7 mg/dl (8.4-10.2); MAGNESIUM 2.4 mg/dl (1.7-2.5); PHOSPHORUS 2.5 mg/dl (2.5-4.9)
[2016-07-09] MEDS: AMLODIPINE 5 MG TAB GTB SCH (09:55)
[2016-07-09] MEDS: CHLORHEXIDINE GLUCONATE 15 ML UD CUP MM SCH ×2 (09:55→20:58)
[2016-07-09] MEDS: FUROSEMIDE 20 MG INJ IV SCH (09:55)
[2016-07-09] MEDS: CALCIUM CARBONATE 1.25 GM TAB GTB SCH ×2 (09:56→20:57)
[2016-07-09] MEDS: MAGNESIUM HYDROXIDE 30ML CUP GTB SCH (09:59)
[2016-07-09] MEDS: MAGNESIUM OXIDE 400 MG TAB GTB SCH (09:59)
--- NOTE | 2016-07-09 10:09 | PN ---
DATE: 07/09/2016 SUBJECTIVE: The patient is stable, no acute events overnight. No fevers, chills, nausea, vomiting. OBJECTIVE: VITAL SIGNS: Blood pressure is 119/62, respiration 18, pulse 61, temperature 97.8. HEENT: Head is normocephalic. NECK: Supple. HEART: Regular rate. LUNGS: Show diminished breath sounds at the base. ABDOMEN: Soft, nontender to palpation. No rebound or guarding. EXTREMITIES: Negative for clubbing, cyanosis. No edema. DERMATOLOGIC: No rashes. MUSCULOSKELETAL: No joint effusions. NEUROLOGIC: No change in exam. MEDICATIONS: The patient's medications have been reviewed. LABORATORY DATA: Shows sodium 140, potassium 3.6, chloride 101, BUN 19, creatinine 0.61. White cou nt is 8.4, hemoglobin 10.6, hematocrit 30.7, platelet count is 259. ASSESSMENT AND PLAN: 1. Acute hypoxemic respiratory failure secondary to pneumonia. The patient is currently ventilator y dependent. The patient's ABGs and chest x-ray has been reviewed. Continue current treatment plan . 2. Sepsis secondary to healthcare-associated pneumonia. Continue current antibiotic regimen, follo w up with infectious disease. 3. Chronic atrial fibrillation, currently rate controlled. Continue Coreg, Xarelto. 4. Acute diastolic heart failure. The patient is clinically euvolemic. Continue current medical m anagement. Follow up with Cardiology. 5. Acute encephalopathy and chronic dementia. Etiology is toxic metabolic. The patient's mental s tatus improved. CT scan shows no acute findings. 6. Dysphagia. Status post PEG. Continue tube feed. 7. History of cerebrovascular accident with right-sided hemiparesis. Continue medical management. 8. Dyslipidemia. Continue statin therapy. 9. Hypertension. The patient is currently normotensive. Continue current blood pressure regimen. 10. Anemia of chronic disease. Continue to monitor H and H levels. 11. GI and deep venous thrombosis prophylaxis. Continue proton pump inhibitor and Xarelto. Dictated By: RACHEAL BELTRÁN/MARLY Conf#: [id number] DID#: [id number]
--- NOTE | 2016-07-09 10:20 | CONS ---
Date/Time of Note Date/Time of Note DATE: 07/09/16 TIME: 10:16 Assessment/Plan Assessment/Plan Additional Assessment/Plan Ventilator settings; assist control of 16, tidal volume 500, PEEP of 0, 30% FiO2. Assessment and recommendations; 1. Patient admitted with sepsis with clinical improvement. 2. Chronic respiratory failure, ventilator dependent. 3. Chronic atrial fibrillation. 4. History of anoxic encephalopathy. Next Continue current treatment. Consider transferring patient back to [facility]. Consultation Date/Type/Reason Admit Date/Time Jul 04, 2016 at 13:45 Initial Consult Date 07/05/16 Type of Consultation: id Referring Provider: OTIS OCHOA MD 24 HR Interval Summary Free Text/Dictation Patient condition is stable. Patient is awake however due to underlying severe anoxic enthesopathy patient is noncommunicative and does not follow any commands. General examination; elderly male, on mechanical ventilation via tracheostomy awake, currently in no distress. Exam/Review of Systems Vital Signs Vitals Vital Signs Date Time Temp Pulse Resp B/P Pulse Ox O2 Delivery O2 Flow Rate FiO2 07/09/16 09:31 68 07/09/16 09:15 18 96 30 07/09/16 08:06 97.8 119/62 Intake and Output 07/08/16 07/08/16 07/09/16 15:00 23:00 07:00 Intake Total 250 ml 910 ml Output Total 575 ml Balance 250 ml 335 ml Results HEENT examination supple neck, tracheostomy in place. Pupils are midsize reactive to light, no lymphadenopathy. No thyromegaly. No JVD. Chest examination; diminished but clear breath sounds bilaterally. S1-S2 audible. No murmurs. Irregular rhythm. Abdomen examination; protuberant, G-tube in place, bowel sounds audible. No organomegaly. Extremity examination; no peripheral edema. Next P[employer] MACHINE examination; patient is awake but does not follow any commands. And is noncommunicative. Result Diagram: 07/09/1645 07/09/16 0545 Results 24 hrs Laboratory Tests Test 07/09/16 05:45 Anion Gap 11 Basophils # 0.0 Basophils % 0.4 Blood Urea Nitrogen 19 Calcium Level 7.7 L Carbon Dioxide Level 32 H Chloride Level 101 Creatinine 0.61 Eosinophils # 0.3 Eosinophils % 3.2 Glucose Level 99 Hematocrit 30.7 L Hemoglobin 10.6 L Lymphocytes # 1.4 Lymphocytes % 16.7 Magnesium Level 2.4 Mean Corpuscular Hemoglobin 33.1 H Mean Corpuscular Hemoglobin Concent 34.5 Mean Corpuscular Volume 95.9 Mean Platelet Volume 8.7 # Monocytes # 0.8 Monocytes % 9.4 Neutrophils # 5.9 Neutrophils % 70.3 Nucleated Red Blood Cells # 0.0 Nucleated Red Blood Cells % 0.0 Phosphorus Level 2.5 Platelet Count 259 Potassium Level 3.6 Red Blood Count 3.20 L Red Cell Distribution Width 12.9 Sodium Level 140 White Blood Count 8.4 Medications Medications Current Medications Acetaminophen (Tylenol Liquid) 650 mg Q4H PRN GTB PAIN AND OR ELEVATED TEMP Last administered on 07/06/16 10:19; Admin Dose 650 MG; Start 07/04/16 at 13:30 Amlodipine Besylate (Norvasc) 5 mg DAILY GTB Last administered on 07/09/16 09: 55; Admin Dose 5 MG; Start 07/05/16 at 09:00 Atorvastatin Calcium (Lipitor) 2.5 mg QHS GTB Last administered on 07/08/16 21: 52; Admin Dose 2.5 MG; Start 07/04/16 at 21:00 Bisacodyl (Dulcolax Supp) 10 mg Q24H PRN [place] CONSTIPATION; Start 07/04/16 at 13: 30 Carvedilol (Coreg) 12.5 mg BID GTB Last administered on 07/09/16 09:56; Admin Dose 12.5 MG; Start 07/04/16 at 21:00 Chlorhexidine Gluconate (Peridex) 15 ml Q12 MM Last administered on 07/09/16 09 :55; Admin Dose 15 ML; Start 07/04/16 at 21:00 Docusate Sodium (Colace) 100 mg QHS PO Last administered on 07/08/16 21:52; Admin Dose 100 MG; Start 07/04/16 at 21:00 Famotidine (Pepcid) 20 mg QHS GTB Last administered on 07/08/16 21:52; Admin Dose 20 MG; Start 07/04/16 at 21:00 Magnesium Hydroxide (Milk Of Mag) 30 ml DAILY GTB Last administered on 09:59; Admin Dose 30 ML; Start 07/05/16 at 09:00 Magnesium Oxide (Mag-Ox 400) 200 mg DAILY GTB Last administered on 07/09/16 09: 59; Admin Dose 200 MG; Start 07/05/16 at 09:00 Mineral Oil (Fleet Mineral Oil Enema) 133 ml DAILY PRN [place] CONSTIPATION; Start 07/04/16 at 13:30 Calcium Carbonate 1.25 gm 1.25 gm BID GTB Last administered on 07/09/16 09:56; Admin Dose 1.25 GM; Start 07/05/16 at 12:30 Meropenem 100 ml @ 200 mls/hr Q8 IVPB Last administered on 07/09/16 05:20; Admin Dose 200 MLS/HR; Start 07/05/16 at 16:00 Vancomycin HCl (Vancocin) 250 ml @ 125 mls/hr Q12H IVPB Last administered on 05:59; Admin Dose 125 MLS/HR; Start 07/06/16 at 06:00 Furosemide (Lasix) 20 mg DAILY IV Last administered on 07/09/16 09:55; Admin Dose 20 MG; Start 07/06/16 at 13:00 Scopolamine (Transderm-Scop) 1 patch Q72H TRANSDERM Last administered on 10:10; Admin Dose 1 PATCH; Start 07/07/16 at 10:00 RADHA DUBOIS Jul 09, 2016 10:20
--- NOTE | 2016-07-09 11:00 | CONS ---
Date/Time of Note Date/Time of Note DATE: 07/09/16 TIME: 10:58 Assessment/Plan Assessment/Plan Chief Complaint/Hosp Course IMPRESSION: 1. Atrial fibrillation, currently rate controlled on Xarelto.-some ayaan to 50' s/stable BP 2. Congestive heart failure by chest x-ray, Diastolic acute on chronic 3. Hypotension now improved currently. 4. Abnormal electrocardiogram, assess for acute coronary syndrome.-neg x 3 troponin 5. Respiratory failure, chronic, status post trach. 6. Dysphagia, status post G-tube. 7. Cough assess for upper respiratory infection. 8. Fevers. 9. Coagulopathy secondary to Xarelto. 10. Mild anemia. Recc: -Tele -serial ecg's -Continue coreg/norvasc -Continue statin -Contiue xarelto -Gentle lasix diuresis and Follow volume status -Continue abx's and f/u cx data Problems: Consultation Date/Type/Reason Admit Date/Time Jul 04, 2016 at 13:45 Initial Consult Date 07/05/16 Type of Consultation: Cardiology Reason for Consultation AF/CHF Referring Provider: OTIS OCHOA MD Exam/Review of Systems Vital Signs Vitals Vital Signs Date Time Temp Pulse Resp B/P Pulse Ox O2 Delivery O2 Flow Rate FiO2 07/09/16 09:31 68 07/09/16 09:15 18 96 30 07/09/16 08:06 97.8 119/62 Intake and Output 07/08/16 07/08/16 07/09/16 15:00 23:00 07:00 Intake Total 250 ml 910 ml Output Total 575 ml Balance 250 ml 335 ml Exam Review of Systems: CONSTITUTIONAL: No fevers, chills. PULMONARY: No sob CARDIOVASCULAR: No chest pain/palpitations GASTROINTESTINAL: No nausea/vomiting. GENITOURINARY: No hematuria/dysuria. MUSCULOSKELETAL: No myagias/arthalgias. PSYCHIATRIC: The patient denies depression. NEUROLOGIC: No weakness Constitutional: alert, oriented Psych: no complaints Head: normocephalic ENMT: mucosa pink and moist, other (trached) Neck: jvd (9 cm water), supple Respiratory: diminished breath sounds (at bases/B) Cardiovascular: regular rate and rhythm Gastrointestinal: non-tender, soft Musculoskeletal: muscle tone (normal) Extremities: edema (none) Neurological: other (No focal deficits) Results Result Diagram: 07/09/16 0545 07/09/16 0545 Results 24 hrs Laboratory Tests Test 07/09/16 05:45 Anion Gap 11 Basophils # 0.0 Basophils % 0.4 Blood Urea Nitrogen 19 Calcium Level 7.7 L Carbon Dioxide Level 32 H Chloride Level 101 Creatinine 0.61 Eosinophils # 0.3 Eosinophils % 3.2 Glucose Level 99 Hematocrit 30.7 L Hemoglobin 10.6 L Lymphocytes # 1.4 Lymphocytes % 16.7 Magnesium Level 2.4 Mean Corpuscular Hemoglobin 33.1 H Mean Corpuscular Hemoglobin Concent 34.5 Mean Corpuscular Volume 95.9 Mean Platelet Volume 8.7 # Monocytes # 0.8 Monocytes % 9.4 Neutrophils # 5.9 Neutrophils % 70.3 Nucleated Red Blood Cells # 0.0 Nucleated Red Blood Cells % 0.0 Phosphorus Level 2.5 Platelet Count 259 Potassium Level 3.6 Red Blood Count 3.20 L Red Cell Distribution Width 12.9 Sodium Level 140 White Blood Count 8.4 Medications Medications Current Medications Acetaminophen (Tylenol Liquid) 650 mg Q4H PRN GTB PAIN AND OR ELEVATED TEMP Last administered on 07/06/16 10:19; Admin Dose 650 MG; Start 07/04/16 at 13:30 Amlodipine Besylate (Norvasc) 5 mg DAILY GTB Last administered on 07/09/16 09: 55; Admin Dose 5 MG; Start 07/05/16 at 09:00 Atorvastatin Calcium (Lipitor) 2.5 mg QHS GTB Last administered on 07/08/16 21: 52; Admin Dose 2.5 MG; Start 07/04/16 at 21:00 Bisacodyl (Dulcolax Supp) 10 mg Q24H PRN [place] CONSTIPATION; Start 07/04/16 at 13: 30 Carvedilol (Coreg) 12.5 mg BID GTB Last administered on 07/09/16 09:56; Admin Dose 12.5 MG; Start 07/04/16 at 21:00 Chlorhexidine Gluconate (Peridex) 15 ml Q12 MM Last administered on 07/09/16 09 :55; Admin Dose 15 ML; Start 07/04/16 at 21:00 Docusate Sodium (Colace) 100 mg QHS PO Last administered on 07/08/16 21:52; Admin Dose 100 MG; Start 07/04/16 at 21:00 Famotidine (Pepcid) 20 mg QHS GTB Last administered on 07/08/16 21:52; Admin Dose 20 MG; Start 07/04/16 at 21:00 Magnesium Hydroxide (Milk Of Mag) 30 ml DAILY GTB Last administered on 09:59; Admin Dose 30 ML; Start 07/05/16 at 09:00 Magnesium Oxide (Mag-Ox 400) 200 mg DAILY GTB Last administered on 07/09/16 09: 59; Admin Dose 200 MG; Start 07/05/16 at 09:00 Mineral Oil (Fleet Mineral Oil Enema) 133 ml DAILY PRN [place] CONSTIPATION; Start 07/04/16 at 13:30 Calcium Carbonate 1.25 gm 1.25 gm BID GTB Last administered on 07/09/16 09:56; Admin Dose 1.25 GM; Start 07/05/16 at 12:30 Meropenem 100 ml @ 200 mls/hr Q8 IVPB Last administered on 07/09/16 05:20; Admin Dose 200 MLS/HR; Start 07/05/16 at 16:00 Vancomycin HCl (Vancocin) 250 ml @ 125 mls/hr Q12H IVPB Last administered on 05:59; Admin Dose 125 MLS/HR; Start 07/06/16 at 06:00 Furosemide (Lasix) 20 mg DAILY IV Last administered on 07/09/16 09:55; Admin Dose 20 MG; Start 07/06/16 at 13:00 Scopolamine (Transderm-Scop) 1 patch Q72H TRANSDERM Last administered on 10:10; Admin Dose 1 PATCH; Start 07/07/16 at 10:00 GERARDO SARAVIA Jul 09, 2016 11:00
--- NOTE | 2016-07-09 16:58 | CONS ---
Date/Time of Note Date/Time of Note DATE: 07/09/16 TIME: 16:58 Assessment/Plan Assessment/Plan Chief Complaint/Hosp Course SUBJECTIVE: No acute changes overnight. The patient is noncommunicative, comfortable on vent, no fevers MICROBIOLOGY: Blood culture, urine culture, influenza swab had been negative. DIAGNOSTICS: Chest x-ray revealed right basilar atelectasis or pneumonia. ANTIMICROBIALS: Vanco, Merrem. INDWELLINGS: Trach, PEG, Bower. PHYSICAL EXAMINATION: GENERAL: This is an obese, well-developed, ill-appearing elderly man who is awake, in no distress. HEENT: Head atraumatic, normocephalic. Sclerae anicteric. Buccal mucosa dry. NECK: Supple. Tracheostomy present. CHEST: Rise symmetrical. Breath sounds diminished to bases. HEART: S1, S2. ABDOMEN: Obese, soft, bowel tones present. EXTREMITIES: No cyanosis. ASSESSMENT: 1. Sepsis with fevers and leukocytosis. 2. Healthcare-associated pneumonia. 3. Chronic respiratory failure. 4. Dysphagia. 5. Chronic atrial fibrillation. 6. History of cerebrovascular accident. 7. ALLERGY TO PENICILLIN. PLAN: Remains stable, afebrile, continue abx DW staff Problems: Consultation Date/Type/Reason Admit Date/Time Jul 04, 2016 at 13:45 Initial Consult Date 07/05/16 Type of Consultation: id Referring Provider: OTIS OCHOA MD Exam/Review of Systems Vital Signs Vitals Vital Signs Date Time Temp Pulse Resp B/P Pulse Ox O2 Delivery O2 Flow Rate FiO2 07/09/16 15:35 68 23 96 30 07/09/16 15:30 98.0 120/65 Intake and Output 07/08/16 07/08/16 07/09/16 15:00 23:00 07:00 Intake Total 250 ml 910 ml Output Total 575 ml Balance 250 ml 335 ml Results Result Diagram: 07/09/16 0545 07/09/16 0545 Results 24 hrs Laboratory Tests Test 07/09/16 05:45 Anion Gap 11 Basophils # 0.0 Basophils % 0.4 Blood Urea Nitrogen 19 Calcium Level 7.7 L Carbon Dioxide Level 32 H Chloride Level 101 Creatinine 0.61 Eosinophils # 0.3 Eosinophils % 3.2 Glucose Level 99 Hematocrit 30.7 L Hemoglobin 10.6 L Lymphocytes # 1.4 Lymphocytes % 16.7 Magnesium Level 2.4 Mean Corpuscular Hemoglobin 33.1 H Mean Corpuscular Hemoglobin Concent 34.5 Mean Corpuscular Volume 95.9 Mean Platelet Volume 8.7 # Monocytes # 0.8 Monocytes % 9.4 Neutrophils # 5.9 Neutrophils % 70.3 Nucleated Red Blood Cells # 0.0 Nucleated Red Blood Cells % 0.0 Phosphorus Level 2.5 Platelet Count 259 Potassium Level 3.6 Red Blood Count 3.20 L Red Cell Distribution Width 12.9 Sodium Level 140 White Blood Count 8.4 Medications Medications Current Medications Acetaminophen (Tylenol Liquid) 650 mg Q4H PRN GTB PAIN AND OR ELEVATED TEMP Last administered on 07/06/16 10:19; Admin Dose 650 MG; Start 07/04/16 at 13:30 Amlodipine Besylate (Norvasc) 5 mg DAILY GTB Last administered on 07/09/16 09: 55; Admin Dose 5 MG; Start 07/05/16 at 09:00 Atorvastatin Calcium (Lipitor) 2.5 mg QHS GTB Last administered on 07/08/16 21: 52; Admin Dose 2.5 MG; Start 07/04/16 at 21:00 Bisacodyl (Dulcolax Supp) 10 mg Q24H PRN [place] CONSTIPATION; Start 07/04/16 at 13: 30 Carvedilol (Coreg) 12.5 mg BID GTB Last administered on 07/09/16 09:56; Admin Dose 12.5 MG; Start 07/04/16 at 21:00 Chlorhexidine Gluconate (Peridex) 15 ml Q12 MM Last administered on 07/09/16 09 :55; Admin Dose 15 ML; Start 07/04/16 at 21:00 Docusate Sodium (Colace) 100 mg QHS PO Last administered on 07/08/16 21:52; Admin Dose 100 MG; Start 07/04/16 at 21:00 Famotidine (Pepcid) 20 mg QHS GTB Last administered on 07/08/16 21:52; Admin Dose 20 MG; Start 07/04/16 at 21:00 Magnesium Hydroxide (Milk Of Mag) 30 ml DAILY GTB Last administered on 09:59; Admin Dose 30 ML; Start 07/05/16 at 09:00 Magnesium Oxide (Mag-Ox 400) 200 mg DAILY GTB Last administered on 07/09/16 09: 59; Admin Dose 200 MG; Start 07/05/16 at 09:00 Mineral Oil (Fleet Mineral Oil Enema) 133 ml DAILY PRN [place] CONSTIPATION; Start 07/04/16 at 13:30 Calcium Carbonate 1.25 gm 1.25 gm BID GTB Last administered on 07/09/16 09:56; Admin Dose 1.25 GM; Start 07/05/16 at 12:30 Meropenem 100 ml @ 200 mls/hr Q8 IVPB Last administered on 07/09/16 14:30; Admin Dose 200 MLS/HR; Start 07/05/16 at 16:00 Vancomycin HCl (Vancocin) 250 ml @ 125 mls/hr Q12H IVPB Last administered on 05:59; Admin Dose 125 MLS/HR; Start 07/06/16 at 06:00 Furosemide (Lasix) 20 mg DAILY IV Last administered on 07/09/16 09:55; Admin Dose 20 MG; Start 07/06/16 at 13:00 Scopolamine (Transderm-Scop) 1 patch Q72H TRANSDERM Last administered on 10:10; Admin Dose 1 PATCH; Start 07/07/16 at 10:00 Miscellaneous Information (*Rx Drug Level Order Reminder*) 1 ONCE ONCE XX ; Start 07/10/16 at 05:00; Stop 07/10/16 at 05:01 SULTANA TELLEZ NP Jul 09, 2016 16:58
[2016-07-09] MEDS: RIVAROXABAN 20 MG TABLET GTB SCH (18:31)
[2016-07-09] MEDS: ATORVASTATIN 10 MG TAB GTB SCH (20:58)
[2016-07-09] MEDS: DOCUSATE SODIUM 100 MG CAP PO SCH (20:58)
[2016-07-09] MEDS: FAMOTIDINE 20 MG TAB GTB SCH (20:59)
[2016-07-10] VITALS (15 sets, daily range): BP systolic 113–149; BP diastolic 65–76; PULSE 59–75; RESP 14–28
[2016-07-10] MEDS: ALBUTEROL HFA 8 GM INHALER INH SCH ×3 (02:18→12:59)
[2016-07-10] MEDS: IPRATROPIUM (HFA) 12.9 GM INHALER INH SCH ×3 (02:18→12:58)
[2016-07-10] MEDS: MEROPENEM 1 GM/100 ML (PMX) 100 ML IVPB SCH ×2 (06:09→13:19)
[2016-07-10 07:19] LABS: POTASSIUM 3.6 mmol/L (3.5-5.1)
[2016-07-10 07:22] LABS: CREATININE 0.54 mg/dl (0.61-1.24)
[2016-07-10 07:23] LABS: CALCIUM 7.7 mg/dl (8.4-10.2)
[2016-07-10] MEDS: VANCOMYCIN 1 GM in NS 250 ML IVPB SCH (07:49)
[2016-07-10] MEDS: MAGNESIUM OXIDE 400 MG TAB GTB SCH (08:02)
[2016-07-10] MEDS: MAGNESIUM HYDROXIDE 30ML CUP GTB SCH (08:02)
[2016-07-10] MEDS: FUROSEMIDE 20 MG INJ IV SCH (08:02)
[2016-07-10] MEDS: CHLORHEXIDINE GLUCONATE 15 ML UD CUP MM SCH (08:02)
[2016-07-10] MEDS: CALCIUM CARBONATE 1.25 GM TAB GTB SCH (08:02)
[2016-07-10] MEDS: AMLODIPINE 5 MG TAB GTB SCH (08:03)
--- NOTE | 2016-07-10 10:10 | CONS ---
Date/Time of Note Date/Time of Note DATE: 07/10/16 TIME: 10:04 Assessment/Plan Assessment/Plan Additional Assessment/Plan Assessment and recommendations; 1. Patient with history of chronic respiratory failure. History of severe CVA. 2. Healthcare associated pneumonia. Currently on meropenem and vancomycin. 3. History of hypertension, CHF; which appears fairly compensated at this point. Continue current treatment. Consultation Date/Type/Reason Admit Date/Time Jul 04, 2016 at 13:45 Initial Consult Date 07/05/16 Type of Consultation: pulmonary Referring Provider: OTIS OCHOA MD 24 HR Interval Summary Free Text/Dictation Patient condition remains stable. Has remained hemodynamically stable also. Because of CVA the patient is awake but unresponsive to any commands. General examination; elderly male, on mechanical ventilation via tracheostomy currently in no distress. Exam/Review of Systems Vital Signs Vitals Vital Signs Date Time Temp Pulse Resp B/P Pulse Ox O2 Delivery O2 Flow Rate FiO2 07/10/16 08:41 59 07/10/16 07:59 30 07/10/16 07:40 20 99 07/10/16 07:00 97.6 149/76 Intake and Output 07/09/16 07/09/16 07/10/16 15:00 23:00 07:00 Intake Total 1440 ml 100 ml Output Total 650 ml Balance 790 ml 100 ml Exam Current ventilator settings are AC of 14 tidal volume 500, PEEP of 5, 30% FiO2. HEENT examination; supple neck, no JVD. No lymphadenopathy. Tracheostomy in place. Chest examination; diminished but clear breath sounds. S1-S2 audible, irregular rhythm. Abdomen examination; soft, nondistended. No organomegaly. G-tube in place. Bowel sounds audible. Extremity examination; no peripheral edema. [employer] examination; patient is awake but does not follow any commands. Results Result Diagram: 07/09/16 0545 07/10/16 0610 Results 24 hrs Laboratory Tests Test 07/10/16 06:10 Anion Gap 13 Blood Urea Nitrogen 18 Calcium Level 7.7 L Carbon Dioxide Level 31 Chloride Level 101 Creatinine 0.54 L Glucose Level 136 Potassium Level 3.6 Sodium Level 141 Vancomycin Level Trough 10.5 Medications Medications Current Medications Acetaminophen (Tylenol Liquid) 650 mg Q4H PRN GTB PAIN AND OR ELEVATED TEMP Last administered on 07/06/16t 10:19; Admin Dose 650 MG; Start 07/04/16 at 13:30 Amlodipine Besylate (Norvasc) 5 mg DAILY GTB Last administered on 07/10/16 08: 03; Admin Dose 5 MG; Start 07/05/16 at 09:00 Atorvastatin Calcium (Lipitor) 2.5 mg QHS GTB Last administered on 07/09/16 20: 58; Admin Dose 2.5 MG; Start 07/04/16 at 21:00 Bisacodyl (Dulcolax Supp) 10 mg Q24H PRN [place] CONSTIPATION; Start 07/04/16 at 13: 30 Carvedilol (Coreg) 12.5 mg BID GTB Last administered on 07/10/16 08:03; Admin Dose 12.5 MG; Start 07/04/16 at 21:00 Chlorhexidine Gluconate (Peridex) 15 ml Q12 MM Last administered on 07/10/16 08 :02; Admin Dose 15 ML; Start 07/04/16 at 21:00 Docusate Sodium (Colace) 100 mg QHS PO Last administered on 07/09/16 20:58; Admin Dose 100 MG; Start 07/04/16 at 21:00 Famotidine (Pepcid) 20 mg QHS GTB Last administered on 07/09/16 20:59; Admin Dose 20 MG; Start 07/04/16 at 21:00 Magnesium Hydroxide (Milk Of Mag) 30 ml DAILY GTB Last administered on 08:02; Admin Dose 30 ML; Start 07/05/16 at 09:00 Magnesium Oxide (Mag-Ox 400) 200 mg DAILY GTB Last administered on 07/10/16 08: 02; Admin Dose 200 MG; Start 07/05/16 at 09:00 Mineral Oil (Fleet Mineral Oil Enema) 133 ml DAILY PRN [place] CONSTIPATION; Start 07/04/16 at 13:30 Calcium Carbonate 1.25 gm 1.25 gm BID GTB Last administered on 07/10/16 08:02; Admin Dose 1.25 GM; Start 07/05/16 at 12:30 Meropenem 100 ml @ 200 mls/hr Q8 IVPB Last administered on 07/10/16 06:09; Admin Dose 200 MLS/HR; Start 07/05/16 at 16:00 Vancomycin HCl (Vancocin) 250 ml @ 125 mls/hr Q12H IVPB Last administered on 07:49; Admin Dose 125 MLS/HR; Start 07/06/16 at 06:00 Furosemide (Lasix) 20 mg DAILY IV Last administered on 07/10/16 08:02; Admin Dose 20 MG; Start 07/06/16 at 13:00 Scopolamine (Transderm-Scop) 1 patch Q72H TRANSDERM Last administered on 10:10; Admin Dose 1 PATCH; Start 07/07/16 at 10:00 RADHA DUBOIS Jul 10, 2016 10:10
[2016-07-10] MEDS: SCOPOLAMINE 1.5 MG PATCH TRANSDERM SCH (10:24)
--- NOTE | 2016-07-10 10:34 | CONS ---
Date/Time of Note Date/Time of Note DATE: 07/10/16 TIME: 10:32 Assessment/Plan Assessment/Plan Additional Assessment/Plan 1. Atrial fibrillation, currently rate controlled on Xarelto.-some ayaan to 50' s/stable BP - stable, no indication for pacer now 2. Congestive heart failure by chest x-ray, Diastolic acute on chronic - better fluid status, will keep euvolemic. 3. Hypotension now improved currently- better now 4. Abnormal electrocardiogram, assess for acute coronary syndrome.-neg x 3 troponin - no intervention planned now 5. Respiratory failure, chronic, status post trach - con't resp Rx 6. Dysphagia, status post G-tube. 7. Cough assess for upper respiratory infection. 8. Fevers. 9. Coagulopathy secondary to Xarelto - no bleeding noted 10. Mild anemia. Consultation Date/Type/Reason Admit Date/Time Jul 04, 2016 at 13:45 Initial Consult Date 07/05/16 Type of Consultation: pulmonary Referring Provider: OTIS OCHOA MD 24 HR Interval Summary Free Text/Dictation No acute change - no CP - some ayaan to 50's/stable BP - stable, no indication for pacer now ROS: No fever, no chills, no nausea, no vomiting, no diarrhea/constipation No recent weight changes No chest pain, no PND, no orthopnea No dizziness, blurred vision No thirst, no heat or cold intolerance (per nurse) Exam/Review of Systems Vital Signs Vitals Vital Signs Date Time Temp Pulse Resp B/P Pulse Ox O2 Delivery O2 Flow Rate FiO2 07/10/16 09:10 58 28 97 30 07/10/16 07:00 97.6 149/76 Intake and Output 07/09/16 07/09/16 07/10/16 15:00 23:00 07:00 Intake Total 1440 ml 100 ml Output Total 650 ml Balance 790 ml 100 ml Exam General: WN/WD/NAD, AOx 0-1 HEENT: Unicetric/atraumatic/EOMI (does not follow commands) NECK: trach, no thyromegaly Lymph: no lymphadenopathy HEART: IRregular with no S3, II/ systolic murmur at apex LUNGS: Coarse sounds ABD: soft, NT, ND, +BS : Intact Neuro: non focal SKIN: chronic changes EXT: trace edema Results Result Diagram: 07/09/16 0545 07/10/16 0610 Results 24 hrs Laboratory Tests Test 07/10/16 06:10 Anion Gap 13 Blood Urea Nitrogen 18 Calcium Level 7.7 L Carbon Dioxide Level 31 Chloride Level 101 Creatinine 0.54 L Glucose Level 136 Potassium Level 3.6 Sodium Level 141 Vancomycin Level Trough 10.5 Medications Medications Current Medications Acetaminophen (Tylenol Liquid) 650 mg Q4H PRN GTB PAIN AND OR ELEVATED TEMP Last administered on 07/06/16 10:19; Admin Dose 650 MG; Start 07/04/16 at 13:30 Amlodipine Besylate (Norvasc) 5 mg DAILY GTB Last administered on 07/10/16 08: 03; Admin Dose 5 MG; Start 07/05/16 at 09:00 Atorvastatin Calcium (Lipitor) 2.5 mg QHS GTB Last administered on 07/09/16 20: 58; Admin Dose 2.5 MG; Start 07/04/16 at 21:00 Bisacodyl (Dulcolax Supp) 10 mg Q24H PRN [place] CONSTIPATION; Start 07/04/16 at 13: 30 Carvedilol (Coreg) 12.5 mg BID GTB Last administered on 07/10/16 08:03; Admin Dose 12.5 MG; Start 07/04/16 at 21:00 Chlorhexidine Gluconate (Peridex) 15 ml Q12 MM Last administered on 07/10/16 08 :02; Admin Dose 15 ML; Start 07/04/16 at 21:00 Docusate Sodium (Colace) 100 mg QHS PO Last administered on 07/09/16 20:58; Admin Dose 100 MG; Start 07/04/16 at 21:00 Famotidine (Pepcid) 20 mg QHS GTB Last administered on 07/09/16 20:59; Admin Dose 20 MG; Start 07/04/16 at 21:00 Magnesium Hydroxide (Milk Of Mag) 30 ml DAILY GTB Last administered on 08:02; Admin Dose 30 ML; Start 07/05/16 at 09:00 Magnesium Oxide (Mag-Ox 400) 200 mg DAILY GTB Last administered on 07/10/16 08: 02; Admin Dose 200 MG; Start 07/05/16 at 09:00 Mineral Oil (Fleet Mineral Oil Enema) 133 ml DAILY PRN [place] CONSTIPATION; Start 07/04/16 at 13:30 Calcium Carbonate 1.25 gm 1.25 gm BID GTB Last administered on 07/10/16 08:02; Admin Dose 1.25 GM; Start 07/05/16 at 12:30 Meropenem 100 ml @ 200 mls/hr Q8 IVPB Last administered on 07/10/16 06:09; Admin Dose 200 MLS/HR; Start 07/05/16 at 16:00 Vancomycin HCl (Vancocin) 250 ml @ 125 mls/hr Q12H IVPB Last administered on 07:49; Admin Dose 125 MLS/HR; Start 07/06/16 at 06:00 Furosemide (Lasix) 20 mg DAILY IV Last administered on 07/10/16 08:02; Admin Dose 20 MG; Start 07/06/16 at 13:00 Scopolamine (Transderm-Scop) 1 patch Q72H TRANSDERM Last administered on 10:24; Admin Dose 1 PATCH; Start 07/07/16 at 10:00 JOEY BRANDT MD Jul 10, 2016 10:34
--- NOTE | 2016-07-10 15:02 | DS ---
DATE OF ADMISSION: 07/04/2016 DATE OF DISCHARGE: 07/10/2016 HOSPITAL COURSE: This is a 75-year-old male well known to me with past medical history of CVA with right-sided hemiparesis, history of dementia, hypertension, dyslipidemia, chronic atrial fibrillatio n, dysphagia, status post PEG, who presented to [facility] with shortness of breat h and fever. The patient in the emergency room was noted to have elevated white count, fever and ch est x-ray showed infiltrate. He was subsequently admitted to telemetry for evaluation. The patient was diagnosed with healthcare-associated pneumonia, was seen by infectious disease specialist, Dr. Varghese. The patient was placed on IV antibiotics. The patient's blood cultures were negative, and during the hospital course, the patient responded well to antibiotic therapy, as he has defervesced with a normalized white count. The patient was also resumed back on his ventilator as he was previo usly on trach mask. The patient clinically has been stable on ventilator and will [facility]. The patient's other medical problems including acute encepha lopathy. He had a CT scan of the brain showed no acute findings. The patient's mental status has i mproved during the hospital course as etiology was felt to be toxic metabolic. The patient also has other medical problems including dyslipidemia, hypertension, anemia and chronic afib, all have been well controlled during the hospital course. The patient was also seen by signal mechanic, Dr. Whitlock . The patient also was noted to have an episode of CHF, diastolic failure and that is clinically im proved with diuretic therapy. Currently, at this time, the patient is stable. Patient will be discharged back to residential facility where he will continue antibiotic therap y for another 7 days. At time of discharge, the patient is stable, in no acute distress. FINAL DIAGNOSES: 1. Acute hypoxemic respiratory failure secondary to pneumonia. 2. Sepsis secondary to healthcare-associated pneumonia. 3. Chronic atrial fibrillation. 4. Acute diastolic heart failure. 5. Acute encephalopathy. 6. Dementia. 7. Dysphagia. 8. History of cerebrovascular accident with right-sided hemiparesis. 9. Dyslipidemia. 10. Hypertension. 11. Anemia. FINAL MEDICATIONS: See reconciliation list. Please note I spent over 40 minutes timeframe on patient's discharge. Dictated By: RACHEAL BELTRÁN/MARLY Conf#: [id number] DID#: [id number]
[2016-07-10] MEDS ORDERED: VANCOMYCIN 1.25 GM in SOD CHLORIDE 0.9% 250 ML IVPB SCH (20:00)
--- NOTE | 2016-07-10 22:50 | CONS ---
Date/Time of Note Date/Time of Note DATE: 07/10/16 TIME: 13:07 Assessment/Plan Assessment/Plan Chief Complaint/Hosp Course SUBJECTIVE: No acute changes overnight. The patient is noncommunicative, comfortable on vent, no fevers MICROBIOLOGY: Blood culture, urine culture, influenza swab had been negative. DIAGNOSTICS: Chest x-ray revealed right basilar atelectasis or pneumonia. ANTIMICROBIALS: Vanco, Merrem. INDWELLINGS: Trach, PEG, Bower. PHYSICAL EXAMINATION: GENERAL: This is an obese, well-developed, ill-appearing elderly man who is awake, in no distress. HEENT: Head atraumatic, normocephalic. Sclerae anicteric. Buccal mucosa dry. NECK: Supple. Tracheostomy present. CHEST: Rise symmetrical. Breath sounds diminished to bases. HEART: S1, S2. ABDOMEN: Obese, soft, bowel tones present. EXTREMITIES: No cyanosis. ASSESSMENT: 1. Sepsis with fevers and leukocytosis. 2. Healthcare-associated pneumonia. 3. Chronic respiratory failure. 4. Dysphagia. 5. Chronic atrial fibrillation. 6. History of cerebrovascular accident. 7. ALLERGY TO PENICILLIN. PLAN: Improving, continue abx for 5 more days, pending dc planning DW staff DW DR Lal Problems: Consultation Date/Type/Reason Admit Date/Time Jul 04, 2016 at 13:45 Initial Consult Date 07/05/16 Type of Consultation: ID Referring Provider: OTIS OCHOA MD Exam/Review of Systems Vital Signs Vitals Vital Signs Date Time Temp Pulse Resp B/P Pulse Ox O2 Delivery O2 Flow Rate FiO2 07/10/16 14:17 97.6 73 14 113/69 100 Mechanical Ventilator 07/10/16 13:05 30 Intake and Output 07/09/16 07/09/16 07/10/16 15:00 23:00 07:00 Intake Total 1440 ml 100 ml Output Total 650 ml Balance 790 ml 100 ml Results Result Diagram: 07/09/16 0545 07/10/16 0610 Results 24 hrs Laboratory Tests Test 07/10/16 06:10 07/10/16 20:12 Anion Gap 13 Blood Urea Nitrogen 18 Calcium Level 7.7 L Carbon Dioxide Level 31 Chloride Level 101 Creatinine 0.54 L Glucose Level 136 Potassium Level 3.6 Sodium Level 141 Vancomycin Level Trough 10.5 Lab Scanned Report REFERENCE LAB SULTANA TELLEZ SECRETARY TO THE VICE PRESIDENT Jul 10, 2016 22:50
== END 2016-07-10 14:22 | DRG 870 ==
LOC: E/R 23:38 → TEL 07-04 02:10 → OBSVTOIN 07-04 13:45 → UNDOADMOB 07-04 22:28 → TEL 07-04 22:28
PROVIDERS: ADMIT Internal Medicine; ATTEND Internal Medicine
PROC: 5A1955Z Respiratory Ventilation, Greater than 96 Consecutive Hours (ICD-10-PCS; principal; 2016-07-03)
DX: A41.9 Sepsis, unspecified organism (principal); J96.21 Acute and chronic respiratory failure with hypoxia; J18.9 Pneumonia, unspecified organism; G92 Toxic encephalopathy; I50.33 Acute on chronic diastolic (congestive) heart failure; G93.1 Anoxic brain damage, not elsewhere classified; Z93.0 Tracheostomy status; F03.90 Unspecified dementia, unspecified severity, without behavioral disturbance, psychotic disturbance, mood disturbance, and anxiety; I69.951 Hemiplegia and hemiparesis following unspecified cerebrovascular disease affecting right dominant side; I11.0 Hypertensive heart disease with heart failure; I48.2 Chronic atrial fibrillation; D63.8 Anemia in other chronic diseases classified elsewhere; Z88.0 Allergy status to penicillin; Z66 Do not resuscitate; R13.10 Dysphagia, unspecified
CPT/HCPCS: 36415; 36600; 70450; 71010; 80048; 80053; 80061; 80202; 81001; 81003; 82550; 82553; 82803; 83605; 83735; 83880; 84100; 84145; 84443; 84484; 85025; 85610; 85730; 87040; 87075; 87081; 87086; 87400; 90686; 93005; 93306; 94002; 94003; 94640; 94664; 96374; 96375; 99217; J1940; G0378; J1956; J2185; J3370; J7040; J7050